=== PATIENT | male | born 1970 | race African-American/Black ===

== ENCOUNTER 2020-05-28 09:54 | Inpatient (IN) | payer MEDICAID, MEDICARE ==
[~2020-05-28] VITALS: Ht 175.3 cm; Wt 139.7 kg
[2020-05-28 11:15] LABS: BASOPHILS % 0.9 % (0.0-2.0); EOSINOPHILS % 1.4 % (0.0-5.0); HEMATOCRIT. 44.7 % (42.0-52.0); HEMOGLOBIN. 14.6 g/dL (14.0-18.0); LYMPHOCYTES % 29.5 % (20.0-50.0); MEAN CORPUSCULAR HEMOGLOBIN 30.7 pg (28.0-32.0); MEAN CORPUSCULAR VOLUME 93.9 fL (80.0-94.0); MONOCYTES % 8.1 % (2.0-8.0); NEUTROPHILS % 60.1 % (40.0-76.0); PLATELET 221 x1000/uL (130-400); RED BLOOD CELL COUNT 4.76 mill/uL (4.7-6.1); RED CELL DISTRIBUTION WIDTH 14.7 % (11.6-14.6)
[2020-05-28 11:25] LABS: INR 1.1; PROTHROMBIN TIME 11.4 sec (9.6-11.0)
[2020-05-28 12:08] LABS: CHLORIDE 106 mEq/L (98-107)
[2020-05-28] MEDS ORDERED: ALBUTEROL (0.083%) 2.5MG/3ML NEB HHN STA (12:16)
[2020-05-28] MEDS ORDERED: METHYLPREDNISOLONE SOD SUCC 125 MG/2 ML VIAL IV STA (12:16)
[2020-05-28] MEDS ORDERED: IPRATROPIUM BROMIDE (0.02%) 0.5MG/2.5ML NEB HHN STA (12:16)
[2020-05-28] MEDS ORDERED: GUAIFENESIN 200MG/10ML SUGAR FREE UDC PO PRN (15:15)
[2020-05-28] MEDS ORDERED: HYDROCODONE/ACETAMINOPHEN 5/325MG TABLET PO PRN (15:15)
[2020-05-28] MEDS ORDERED: ONDANSETRON HCL 4MG/2ML INJ IV PRN (15:15)
[2020-05-28] MEDS ORDERED: MAGNESIUM/ALUMINUM HYDROXIDE/SIMETHICONE 30ML UDC PO PRN (15:15)
[2020-05-28] MEDS ORDERED: ACETAMINOPHEN 325MG TABLET PO PRN (15:15)
[2020-05-28] MEDS: IPRATROPIUM/ALBUTEROL 0.5-3(2.5)MG/3ML NEB HHN PRN ×2 (15:40→22:30)
[2020-05-28 16:28] LABS: BG BASE EXCESS 4.7 mmol/L (-2.0-2.0); BG DEOXYHEMOGLOBIN 3.9 % (0.0-5.0); BG HCO3 ACT 35.3 mmol/L (22.0-26.0); BG METHEMOGLOBIN 0.5 % (0.0-1.5); BG OXYHEMOGLOBIN 94.6 % (94.0-97.0); BG PCO2 82.6 mmHg (35.0-45.0); BG PH 7.249 (7.350-7.450); BG PO2 89.2 mmHg (75.0-100.0); BG SAMPLE SITE RIGHT RADIAL; BG TOTAL HEMOGLOBIN 15.4 g/dL (12.0-18.0); BG VENT MODE MASK - VENTI
[2020-05-28 18:08] LABS: BG BASE EXCESS -0.8 mmol/L (-2.0-2.0); BG BILEVEL POS AIRWAY PRESSURE 15/5; BG CARBOXYHEMOGLOBIN 0.6 % (0.5-1.5); BG HCO3 ACT 29.6 mmol/L (22.0-26.0); BG METHEMOGLOBIN 0.4 % (0.0-1.5); BG PCO2 76.7 mmHg (35.0-45.0); BG PH 7.205 (7.350-7.450); BG PO2 197.2 mmHg (75.0-100.0); BG SAMPLE SITE RIGHT RADIAL; BG TOTAL HEMOGLOBIN 15.5 g/dL (12.0-18.0); BG VENT MODE MASK - BIPAP; BG VENT RATE 20 set
[2020-05-29 00:28] LABS: CREATINE KINASE 124 IU/L (39-308)
[2020-05-29] MEDS: CLONIDINE 0.1MG TABLET PO PRN (05:22)
[2020-05-29 07:58] LABS: BASOPHILS % 0.4 % (0.0-2.0); HEMATOCRIT. 43.9 % (42.0-52.0); HEMOGLOBIN. 14.4 g/dL (14.0-18.0); LYMPHOCYTES % 16.2 % (20.0-50.0); MEAN CORPUSCULAR HEMOGLOBIN 30.9 pg (28.0-32.0); MEAN CORPUSCULAR VOLUME 94.4 fL (80.0-94.0); MEAN PLATELET VOLUME 9.3 fl (7.4-10.4); MONOCYTES % 8.1 % (2.0-8.0); NEUTROPHILS % 75.3 % (40.0-76.0); PLATELET 224 x1000/uL (130-400); RED BLOOD CELL COUNT 4.65 mill/uL (4.7-6.1); RED CELL DISTRIBUTION WIDTH 14.5 % (11.6-14.6)
[2020-05-29 08:00] LABS: CHLORIDE 103 mEq/L (98-107)
[2020-05-29 08:08] LABS: HDL CHOLESTEROL 34 mg/dL (40-59)
[2020-05-29 08:08] LABS: BG BASE EXCESS 3.3 mmol/L (-2.0-2.0); BG BILEVEL POS AIRWAY PRESSURE ST=15/5; BG CARBOXYHEMOGLOBIN 0.9 % (0.5-1.5); BG DEOXYHEMOGLOBIN 2.1 % (0.0-5.0); BG FRACTION INSPIRED OXYGEN 50; BG HCO3 ACT 34.6 mmol/L (22.0-26.0); BG METHEMOGLOBIN 0.4 % (0.0-1.5); BG OXYGEN SATURATION 97.9 % (92.0-98.5); BG OXYHEMOGLOBIN 96.6 % (94.0-97.0); BG PCO2 89.8 mmHg (35.0-45.0); BG PH 7.204 (7.350-7.450); BG PO2 116.7 mmHg (75.0-100.0); BG SAMPLE SITE RIGHT RADIAL; BG TOTAL HEMOGLOBIN 14.8 g/dL (12.0-18.0); BG VENT MODE MASK - BIPAP
[2020-05-29 08:10] LABS: T4 FREE 0.85 ng/dL (0.76-1.46)
[2020-05-29 08:12] LABS: CREATINE KINASE 104 IU/L (39-308)
[2020-05-29 08:17] LABS: LDL CHOLESTEROL 86 mg/dL (5-100)
[2020-05-29] MEDS: AMLODIPINE 10MG TABLET PO SCH (09:06)
[2020-05-29] MEDS: IPRATROPIUM/ALBUTEROL 0.5-3(2.5)MG/3ML NEB HHN SCH ×3 (10:59→20:33)
[2020-05-29] MEDS: BUDESONIDE 0.5MG/2ML NEB HHN SCH (10:59)
[2020-05-29] MEDS ORDERED: FUROSEMIDE 40MG/4ML VIAL IVP NR (12:15)
[2020-05-29] MEDS: ENOXAPARIN 30MG/0.3ML SYR SUBCUT SCH ×2 (12:30→22:24)
[2020-05-29 16:00] VITALS: BP 137/108
[2020-05-29] MEDS: MONTELUKAST SODIUM 10MG TABLET PO SCH (17:00)
[2020-05-29 18:00] VITALS: BP 137/105
[2020-05-29 20:00] VITALS: BP 137/104
[2020-05-29 21:04] VITALS: BP 190/121
[2020-05-29 22:29] VITALS: BP 144/98
[2020-05-29 23:00] VITALS: BP 146/101
[2020-05-30] VITALS (11 sets, daily range): BP systolic 104–182; BP diastolic 44–103
[2020-05-30] MEDS: IPRATROPIUM/ALBUTEROL 0.5-3(2.5)MG/3ML NEB HHN SCH ×4 (01:50→20:18)
[2020-05-30] MEDS: BUDESONIDE 0.5MG/2ML NEB HHN SCH ×3 (01:50→20:18)
[2020-05-30] MEDS: CLONIDINE 0.1MG TABLET PO PRN (02:33)
[2020-05-30 04:54] LABS: CLARITY URINE CLEAR (CLEAR); COLOR URINE YELLOW (YELLOW); KETONES URINE NEGATIVE (NEGATIVE); LEUKOCYTE ESTERASE URINE NEGATIVE (NEGATIVE); NITRITE URINE NEGATIVE (NEGATIVE); OCCULT BLOOD URINE TRACE (NEGATIVE); PH URINE 5.5 (4.5-8.0); PROTEIN URINE TRACE (NEGATIVE)
[2020-05-30 05:10] LABS: *AMPHETAMINES SCREEN URINE NEGATIVE (NEGATIVE); *BARBITURATES SCREEN URINE NEGATIVE (NEGATIVE)
[2020-05-30 05:11] LABS: *BENZODIAZEPINES SCREEN URINE NEGATIVE (NEGATIVE); *COCAINE SCREEN URINE NEGATIVE (NEGATIVE); CANNABINOID URINE SCREEN NEGATIVE (NEGATIVE); METHADONE URINE SCREEN NEGATIVE (NEGATIVE); OPIATES URINE SCREEN NEGATIVE (NEGATIVE); PHENCYCLIDINE URINE SCREEN NEGATIVE (NEGATIVE)
[2020-05-30 06:55] LABS: BASOPHILS % 0.2 % (0.0-2.0); EOSINOPHILS % 0.5 % (0.0-5.0); HEMATOCRIT. 43.4 % (42.0-52.0); HEMOGLOBIN. 14.1 g/dL (14.0-18.0); LYMPHOCYTES % 15.7 % (20.0-50.0); MEAN CORPUSCULAR HEMOGLOBIN 30.3 pg (28.0-32.0); MEAN CORPUSCULAR VOLUME 93.1 fL (80.0-94.0); MEAN PLATELET VOLUME 9.5 fl (7.4-10.4); MONOCYTES % 6.6 % (2.0-8.0); PLATELET 227 x1000/uL (130-400); RED BLOOD CELL COUNT 4.66 mill/uL (4.7-6.1); RED CELL DISTRIBUTION WIDTH 14.2 % (11.6-14.6)
[2020-05-30 07:12] LABS: CHLORIDE 101 mEq/L (98-107)
[2020-05-30] MEDS: AMLODIPINE 10MG TABLET PO SCH (09:32)
[2020-05-30] MEDS: ENOXAPARIN 30MG/0.3ML SYR SUBCUT SCH ×2 (09:33→21:42)
[2020-05-30] MEDS: METHYLPREDNISOLONE SOD SUCC 40 MG/ML VIAL IV SCH ×2 (09:43→17:15)
[2020-05-30 11:54] LABS: BG CARBOXYHEMOGLOBIN 0.5 % (0.5-1.5); BG FRACTION INSPIRED OXYGEN 28; BG HCO3 ACT 32.9 mmol/L (22.0-26.0); BG METHEMOGLOBIN 0.1 % (0.0-1.5); BG OXYHEMOGLOBIN 93.4 % (94.0-97.0); BG PCO2 62.2 mmHg (35.0-45.0); BG PH 7.341 (7.350-7.450); BG PO2 68.8 mmHg (75.0-100.0); BG SAMPLE SITE RIGHT RADIAL; BG TOTAL HEMOGLOBIN 15.3 g/dL (12.0-18.0); BG VENT MODE NASAL CANNULA
[2020-05-30] MEDS: MONTELUKAST SODIUM 10MG TABLET PO SCH (17:15)
[2020-05-30 20:52] LABS: VITAMIN B12 SERUM 375 pg/mL (211-911)
[2020-05-31] VITALS (9 sets, daily range): BP systolic 109–171; BP diastolic 37–102
[2020-05-31] MEDS: METHYLPREDNISOLONE SOD SUCC 40 MG/ML VIAL IV SCH ×2 (01:03→08:31)
[2020-05-31] MEDS: IPRATROPIUM/ALBUTEROL 0.5-3(2.5)MG/3ML NEB HHN SCH ×4 (02:23→20:59)
[2020-05-31] MEDS: BUDESONIDE 0.5MG/2ML NEB HHN SCH ×2 (08:25→21:09)
[2020-05-31] MEDS: ENOXAPARIN 30MG/0.3ML SYR SUBCUT SCH ×2 (08:31→20:29)
[2020-05-31] MEDS: AMLODIPINE 10MG TABLET PO SCH (08:31)
[2020-05-31] MEDS ORDERED: IPRA3AMP9 HHN (10:14)
[2020-05-31] MEDS: MONTELUKAST SODIUM 10MG TABLET PO SCH (17:10)
[2020-05-31] MEDS: DOCUSATE SODIUM 100MG CAPSULE PO PRN (20:28)
[2020-06-01] VITALS: BP 117/47
[2020-06-01] MEDS: IPRATROPIUM/ALBUTEROL 0.5-3(2.5)MG/3ML NEB HHN SCH ×3 (01:59→15:01)
[2020-06-01 04:00] VITALS: BP 125/82
[2020-06-01 08:00] VITALS: BP 129/79
[2020-06-01] MEDS ORDERED: PREDNISONE 20MG TABLET PO SCH (09:00)
[2020-06-01] MEDS: AMLODIPINE 10MG TABLET PO SCH (09:17)
[2020-06-01] MEDS: ENOXAPARIN 30MG/0.3ML SYR SUBCUT SCH (09:17)
[2020-06-01] MEDS: DOCUSATE SODIUM 100MG CAPSULE PO PRN (09:24)
[2020-06-01 12:00] VITALS: BP 149/86
[2020-06-01] MEDS: BUDESONIDE 0.5MG/2ML NEB HHN SCH (15:00)
[2020-06-01 16:00] VITALS: BP 126/68
[2020-06-01] MEDS ORDERED: ENOXAPARIN 40MG/0.4ML SYR SUBCUT SCH (21:00)
== END 2020-06-01 16:28 | DRG 73 ==
LOC: ER 09:54 → EDBEDREQ 12:26 → EDBEDREQTM 12:26 → MICUSO 13:33 → EDBEDREQTM 13:38 → EDBEDREQ 13:38 → 5EST 05-29 14:30
PROVIDERS: ADMIT Hospitalist; ATTEND Hospitalist
PROC: 5A09457 Assistance with Respiratory Ventilation, 24-96 Consecutive Hours, Continuous Positive Airway Pressure (ICD-10-PCS; principal; 2020-05-28)
DX: G90.8 Other disorders of autonomic nervous system (principal); J96.02 Acute respiratory failure with hypercapnia; J96.01 Acute respiratory failure with hypoxia; E66.2 Morbid (severe) obesity with alveolar hypoventilation; I50.40 Unspecified combined systolic (congestive) and diastolic (congestive) heart failure; J44.1 Chronic obstructive pulmonary disease with (acute) exacerbation; Z68.45 Body mass index [BMI] 70 or greater, adult; I16.0 Hypertensive urgency; I11.0 Hypertensive heart disease with heart failure; Z91.19 Patient's noncompliance with other medical treatment and regimen; Z79.899 Other long term (current) drug therapy; H91.90 Unspecified hearing loss, unspecified ear
CPT/HCPCS: 36415; 36600; 70551; 71045; 78580; 80048; 80053; 80061; 80305; 81003; 82375; 82550; 82607; 82805; 83880; 84439; 84443; 84484; 85025; 92610; 93005; 93306; 93970; 94640; 94660; 95816; 97162; 99291; J1650; J2920; J2930; J7512; J7626

== ENCOUNTER 2020-06-01 16:16 | Inpatient (IN) | payer MEDICARE ==
[~2020-06-01] VITALS: Ht 175.3 cm; Wt 139.7 kg
[~2020-06-01 16:16] MED LIST: IPRA3AMP9 HHN
[2020-06-01] MEDS ORDERED: CLONIDINE 0.1MG TABLET PO PRN (17:30)
[2020-06-01] MEDS ORDERED: ONDANSETRON HCL 4MG TABLET PO PRN (17:30)
[2020-06-01] MEDS ORDERED: IPRATROPIUM/ALBUTEROL 0.5-3(2.5)MG/3ML NEB HHN PRN (17:30)
[2020-06-01] MEDS ORDERED: DOCUSATE SODIUM 100MG CAPSULE PO PRN (17:30)
[2020-06-01] MEDS ORDERED: ACETAMINOPHEN 650MG/20.3ML UDC PO PRN (17:30)
[2020-06-01] MEDS ORDERED: GUAIFENESIN 200MG/10ML SUGAR FREE UDC PO PRN (17:30)
[2020-06-01] MEDS ORDERED: MAGNESIUM/ALUMINUM HYDROXIDE/SIMETHICONE 30ML UDC PO PRN (17:30)
[2020-06-01] MEDS ORDERED: HYDROCODONE/ACETAMINOPHEN 5/325MG TABLET PO PRN (17:30)
[2020-06-01 17:39] VITALS: BP 141/79
[2020-06-01 20:00] VITALS: BP 156/87
[2020-06-01] MEDS: IPRATROPIUM/ALBUTEROL 0.5-3(2.5)MG/3ML NEB HHN SCH (20:36)
[2020-06-01] MEDS: ENOXAPARIN 40MG/0.4ML SYR SUBCUT SCH (21:08)
[2020-06-01] MEDS ORDERED: NA PHOS,M-B/NA PHOS,DI-BA ENEMA 118ML PR PRN (23:00)
[2020-06-02] MEDS: IPRATROPIUM/ALBUTEROL 0.5-3(2.5)MG/3ML NEB HHN SCH ×4 (01:42→21:20)
[2020-06-02] MEDS: PREDNISONE 20MG TABLET PO SCH (08:32)
[2020-06-02] MEDS: AMLODIPINE 10MG TABLET PO SCH (08:33)
[2020-06-02] MEDS: ENOXAPARIN 40MG/0.4ML SYR SUBCUT SCH ×2 (08:34→21:45)
[2020-06-02] MEDS ORDERED: ENOXAPARIN 40MG/0.4ML SYR SUBCUT SCH (15:30)
[2020-06-02] MEDS ORDERED: BISACODYL 5MG TABLET PO PRN (15:30)
[2020-06-02] MEDS ORDERED: LACTULOSE 20G/30ML UDC PO SCH (16:00)
[2020-06-02] MEDS ORDERED: LACTULOSE 20G/30ML UDC PO PRN (16:00)
[2020-06-02] MEDS ORDERED: MONTELUKAST SODIUM 10MG TABLET PO SCH (17:00)
[2020-06-02 20:00] VITALS: BP 122/72
[2020-06-03] MEDS: IPRATROPIUM/ALBUTEROL 0.5-3(2.5)MG/3ML NEB HHN SCH ×4 (01:10→21:20)
[2020-06-03 08:00] VITALS: BP 114/66
[2020-06-03] MEDS: PREDNISONE 20MG TABLET PO SCH (09:26)
[2020-06-03] MEDS: AMLODIPINE 10MG TABLET PO SCH (09:27)
[2020-06-03] MEDS: DOCUSATE SODIUM 100MG CAPSULE PO SCH ×2 (09:27→16:55)
[2020-06-03] MEDS: ENOXAPARIN 40MG/0.4ML SYR SUBCUT SCH ×2 (09:28→20:48)
[2020-06-03] MEDS: FLUTICASONE/VILANTEROL 200-25 BLST.W.DEV ORI SCH (16:54)
[2020-06-03 20:00] VITALS: BP 130/77
[2020-06-04] MEDS: IPRATROPIUM/ALBUTEROL 0.5-3(2.5)MG/3ML NEB HHN SCH ×5 (03:15→23:20)
[2020-06-04 08:00] VITALS: BP 105/58
[2020-06-04] MEDS: AMLODIPINE 10MG TABLET PO SCH (09:00)
[2020-06-04] MEDS: DOCUSATE SODIUM 100MG CAPSULE PO SCH ×2 (09:08→16:11)
[2020-06-04] MEDS: PREDNISONE 20MG TABLET PO SCH (09:08)
[2020-06-04] MEDS: ENOXAPARIN 40MG/0.4ML SYR SUBCUT SCH ×2 (09:09→21:10)
[2020-06-04] MEDS: NA PHOS,M-B/NA PHOS,DI-BA ENEMA 118ML PR PRN (09:13)
[2020-06-04] MEDS: FLUTICASONE/VILANTEROL 200-25 BLST.W.DEV ORI SCH (09:29)
[2020-06-04 21:00] VITALS: BP 120/82
[2020-06-05 08:03] VITALS: BP 106/62
[2020-06-05] MEDS: DOCUSATE SODIUM 100MG CAPSULE PO SCH ×2 (09:00→17:54)
[2020-06-05] MEDS: AMLODIPINE 10MG TABLET PO SCH (09:00)
[2020-06-05] MEDS: PREDNISONE 20MG TABLET PO SCH (09:28)
[2020-06-05] MEDS: ENOXAPARIN 40MG/0.4ML SYR SUBCUT SCH ×2 (09:29→21:35)
[2020-06-05] MEDS: FLUTICASONE/VILANTEROL 200-25 BLST.W.DEV ORI SCH (09:29)
[2020-06-05] MEDS: IPRATROPIUM/ALBUTEROL 0.5-3(2.5)MG/3ML NEB HHN SCH ×2 (15:45→20:40)
[2020-06-05 20:00] VITALS: BP 130/76
[2020-06-06] MEDS: IPRATROPIUM/ALBUTEROL 0.5-3(2.5)MG/3ML NEB HHN SCH ×5 (02:14→21:11)
[2020-06-06 08:00] VITALS: BP 122/72
[2020-06-06] MEDS: FLUTICASONE/VILANTEROL 200-25 BLST.W.DEV ORI SCH ×2 (10:25→10:29)
[2020-06-06] MEDS: DOCUSATE SODIUM 100MG CAPSULE PO SCH ×2 (10:27→17:48)
[2020-06-06] MEDS: AMLODIPINE 10MG TABLET PO SCH (10:28)
[2020-06-06] MEDS: PREDNISONE 20MG TABLET PO SCH (10:28)
[2020-06-06] MEDS: ENOXAPARIN 40MG/0.4ML SYR SUBCUT SCH ×2 (10:28→21:50)
[2020-06-06] MEDS: NA PHOS,M-B/NA PHOS,DI-BA ENEMA 118ML PR PRN (14:34)
[2020-06-06] MEDS ORDERED: NA PHOS,M-B/NA PHOS,DI-BA ENEMA 118ML PR NR (14:45)
[2020-06-06 20:00] VITALS: BP 128/78
[2020-06-07] MEDS: IPRATROPIUM/ALBUTEROL 0.5-3(2.5)MG/3ML NEB HHN SCH ×4 (02:15→15:24)
[2020-06-07 06:30] LABS: CHLORIDE 102 mEq/L (98-107)
[2020-06-07 06:49] LABS: HEMATOCRIT 47.4 % (42.0-52.0); HEMOGLOBIN 15.2 g/dL (14.0-18.0); MEAN CORPUSCULAR HEMOGLOBIN 29.6 pg (28.0-32.0); MEAN CORPUSCULAR VOLUME 92.4 fL (80.0-94.0); PLATELET 239 x1000/uL (130-400); RED BLOOD CELL COUNT 5.13 mill/uL (4.7-6.1); RED CELL DISTRIBUTION WIDTH 13.9 % (11.6-14.6)
[2020-06-07 07:59] VITALS: BP 107/77
[2020-06-07] MEDS: AMLODIPINE 10MG TABLET PO SCH (09:00)
[2020-06-07] MEDS: FLUTICASONE/VILANTEROL 200-25 BLST.W.DEV ORI SCH (10:03)
[2020-06-07] MEDS: DOCUSATE SODIUM 100MG CAPSULE PO SCH ×2 (10:04→18:09)
[2020-06-07] MEDS: PREDNISONE 20MG TABLET PO SCH (10:07)
[2020-06-07] MEDS: ENOXAPARIN 40MG/0.4ML SYR SUBCUT SCH ×2 (10:08→21:37)
[2020-06-07 20:00] VITALS: BP 133/78
[2020-06-08] MEDS: IPRATROPIUM/ALBUTEROL 0.5-3(2.5)MG/3ML NEB HHN SCH ×3 (02:17→14:25)
[2020-06-08 08:00] VITALS: BP 91/47
[2020-06-08] MEDS: PREDNISONE 20MG TABLET PO SCH (08:40)
[2020-06-08] MEDS: DOCUSATE SODIUM 100MG CAPSULE PO SCH (08:40)
[2020-06-08] MEDS: AMLODIPINE 10MG TABLET PO SCH (08:41)
[2020-06-08] MEDS: FLUTICASONE/VILANTEROL 200-25 BLST.W.DEV ORI SCH (08:42)
[2020-06-08] MEDS: ENOXAPARIN 40MG/0.4ML SYR SUBCUT SCH (08:44)
[2020-06-08 14:20] VITALS: BP 108/61
== END 2020-06-08 15:05 | disposition home health service (06) | DRG 85 ==
PROVIDERS: ADMIT Psychiatry & Neurology Neurology; ATTEND Hospitalist
PROC: 5A09357 Assistance with Respiratory Ventilation, Less than 24 Consecutive Hours, Continuous Positive Airway Pressure (ICD-10-PCS; 2020-06-01)
PROC: 4A10X4Z Monitoring of Central Nervous Electrical Activity, External Approach (ICD-10-PCS; principal; 2020-06-03)
PROC: 5A09357 Assistance with Respiratory Ventilation, Less than 24 Consecutive Hours, Continuous Positive Airway Pressure (ICD-10-PCS; 2020-06-03)
PROC: 5A09357 Assistance with Respiratory Ventilation, Less than 24 Consecutive Hours, Continuous Positive Airway Pressure (ICD-10-PCS; 2020-06-04)
PROC: 5A09357 Assistance with Respiratory Ventilation, Less than 24 Consecutive Hours, Continuous Positive Airway Pressure (ICD-10-PCS; 2020-06-05)
PROC: 5A09357 Assistance with Respiratory Ventilation, Less than 24 Consecutive Hours, Continuous Positive Airway Pressure (ICD-10-PCS; 2020-06-06)
PROC: 5A09357 Assistance with Respiratory Ventilation, Less than 24 Consecutive Hours, Continuous Positive Airway Pressure (ICD-10-PCS; 2020-06-07)
DX: S06.890A Other specified intracranial injury without loss of consciousness, initial encounter (principal); J96.02 Acute respiratory failure with hypercapnia; E66.2 Morbid (severe) obesity with alveolar hypoventilation; Z68.42 Body mass index [BMI] 45.0-49.9, adult; I10 Essential (primary) hypertension; J44.9 Chronic obstructive pulmonary disease, unspecified; K59.00 Constipation, unspecified; R29.6 Repeated falls; G90.8 Other disorders of autonomic nervous system; J45.909 Unspecified asthma, uncomplicated; Z71.3 Dietary counseling and surveillance
CPT/HCPCS: 36415; 80048; 85027; 92523; 94618; 94640; 94660; 97110; 97112; 97116; 97162; 97166; 97530; 97535; J1650; J7512

== ENCOUNTER 2022-05-16 05:33 | Inpatient (IN) | payer MEDICAID, MEDICARE, OTHER ==
[~2022-05-16] VITALS: Ht 185.4 cm; Wt 132.0 kg
[2022-05-16] VITALS (7 sets, daily range): BP systolic 114–143; BP diastolic 52–71
[2022-05-16] MEDS ORDERED: METHYLPREDNISOLONE SOD SUCC 125 MG/2 ML VIAL IV STA (06:16)
[2022-05-16] MEDS ORDERED: IPRATROPIUM BROMIDE (0.02%) 0.5MG/2.5ML NEB HHN STA (06:16)
[2022-05-16] MEDS ORDERED: ALBUTEROL (0.083%) 2.5MG/3ML NEB HHN STA (06:16)
[2022-05-16 06:44] LABS: BASOPHILS % 0.6 % (0.0-2.0); EOSINOPHILS % 1.2 % (0.0-5.0); HEMATOCRIT. 47.7 % (42.0-52.0); HEMOGLOBIN. 15.8 g/dL (14.0-18.0); LYMPHOCYTES % 42.4 % (20.0-50.0); MEAN CORPUSCULAR HEMOGLOBIN 30.3 pg (28.0-32.0); MEAN CORPUSCULAR VOLUME 91.6 fL (80.0-94.0); MEAN PLATELET VOLUME 9.6 fl (7.4-10.4); MONOCYTES % 5.2 % (2.0-8.0); NEUTROPHILS % 50.6 % (40.0-76.0); PLATELET 212 x1000/uL (130-400); RED BLOOD CELL COUNT 5.21 mill/uL (4.7-6.1); RED CELL DISTRIBUTION WIDTH 14.2 % (11.6-14.6)
[2022-05-16 06:46] LABS: CHLORIDE 102 mEq/L (98-107)
[2022-05-16 07:41] LABS: CLARITY URINE CLEAR (CLEAR); COLOR URINE YELLOW (YELLOW); KETONES URINE NEGATIVE (NEGATIVE); LEUKOCYTE ESTERASE URINE NEGATIVE (NEGATIVE); NITRITE URINE NEGATIVE (NEGATIVE); OCCULT BLOOD URINE 1+ (NEGATIVE); PROTEIN URINE TRACE (NEGATIVE); SPECIFIC GRAVITY URINE 1.014 (1.005-1.030)
[2022-05-16 09:07] LABS: BG BASE EXCESS 4.7 mmol/L (-2.0-2.0); BG CARBOXYHEMOGLOBIN 0.5 % (0.5-1.5); BG DEOXYHEMOGLOBIN 8.2 % (0.0-5.0); BG FRACTION INSPIRED OXYGEN 28; BG HCO3 ACT 35.6 mmol/L (22.0-26.0); BG METHEMOGLOBIN 0.6 % (0.0-1.5); BG OXYGEN SATURATION 91.7 % (92.0-98.5); BG OXYHEMOGLOBIN 90.7 % (94.0-97.0); BG PCO2 85.1 mmHg (35.0-45.0); BG PH 7.239 (7.350-7.450); BG PO2 70.6 mmHg (75.0-100.0); BG SAMPLE SITE RIGHT RADIAL; BG TOTAL HEMOGLOBIN 15.4 g/dL (12.0-18.0); BG VENT MODE NASAL CANNULA
[2022-05-16] MEDS: ALBUTEROL (0.083%) 2.5MG/3ML NEB HHN NR ×2 (10:40→11:15)
[2022-05-16] MEDS: IPRATROPIUM BROMIDE (0.02%) 0.5MG/2.5ML NEB HHN NR ×2 (10:40→11:16)
[2022-05-16 11:26] LABS: BG BASE EXCESS 5.1 mmol/L (-2.0-2.0); BG DEOXYHEMOGLOBIN 14.9 % (0.0-5.0); BG FRACTION INSPIRED OXYGEN 98; BG METHEMOGLOBIN 0.3 % (0.0-1.5); BG OXYGEN SATURATION 84.9 % (92.0-98.5); BG OXYHEMOGLOBIN 83.8 % (94.0-97.0); BG PCO2 62.1 mmHg (35.0-45.0); BG PH 7.343 (7.350-7.450); BG PO2 48.1 mmHg (75.0-100.0); BG SAMPLE SITE RIGHT RADIAL; BG TOTAL HEMOGLOBIN 15.1 g/dL (12.0-18.0); BG VENT MODE COOL AEROSOL
[2022-05-16] MEDS ORDERED: CEFTRIAXONE 1 G PREMIX 50 ML IV SCH (13:30)
[2022-05-16] MEDS ORDERED: AZITHROMYCIN 500MG/250ML 250 ML IV ONE (13:30)
[2022-05-16 14:05] LABS: BG BASE EXCESS 2.2 mmol/L (-2.0-2.0); BG CARBOXYHEMOGLOBIN 0.7 % (0.5-1.5); BG DEOXYHEMOGLOBIN 7.1 % (0.0-5.0); BG FRACTION INSPIRED OXYGEN 60; BG HCO3 ACT 30.5 mmol/L (22.0-26.0); BG METHEMOGLOBIN 0.5 % (0.0-1.5); BG OXYGEN SATURATION 92.8 % (92.0-98.5); BG OXYHEMOGLOBIN 91.7 % (94.0-97.0); BG PCO2 64.1 mmHg (35.0-45.0); BG PH 7.295 (7.350-7.450); BG PO2 67.7 mmHg (75.0-100.0); BG SAMPLE SITE LEFT RADIAL; BG TOTAL HEMOGLOBIN 14.4 g/dL (12.0-18.0); BG VENT MODE COOL AEROSOL
[2022-05-16] MEDS: CEFTRIAXONE 1,000 MG in DEXTROSE 5% WATER 50 ML IV SCH (15:56)
[2022-05-16] MEDS: IPRATROPIUM BROMIDE (0.02%) 0.5MG/2.5ML NEB HHN SCH ×2 (16:51→20:31)
[2022-05-16] MEDS: ACETYLCYSTEINE 100MG/ML 10% VIAL 4ML INH SCH (16:51)
[2022-05-16] MEDS: AZITHROMYCIN 500MG in DEXTROSE 5% WATER 250ML IV SCH (16:55)
[2022-05-16] MEDS ORDERED: MAGNESIUM/ALUMINUM HYDROXIDE/SIMETHICONE 30ML UDC PO PRN (20:30)
[2022-05-16] MEDS ORDERED: ZOLPIDEM TARTRATE 5MG TABLET PO PRN (20:30)
[2022-05-16] MEDS ORDERED: ACETAMINOPHEN 325MG TABLET PO PRN (20:30)
[2022-05-16] MEDS: SODIUM CHLORIDE 0.9% INJ 3ML FLUSH IVF SCH (22:00)
[2022-05-17] VITALS (10 sets, daily range): BP systolic 112–171; BP diastolic 60–109
[2022-05-17] MEDS: ACETYLCYSTEINE 100MG/ML 10% VIAL 4ML INH SCH ×3 (00:34→16:00)
[2022-05-17] MEDS: IPRATROPIUM BROMIDE (0.02%) 0.5MG/2.5ML NEB HHN SCH ×6 (00:34→20:28)
[2022-05-17] MEDS: SODIUM CHLORIDE 0.9% INJ 3ML FLUSH IVF SCH ×3 (05:58→22:19)
[2022-05-17] MEDS: CEFTRIAXONE 1,000 MG in DEXTROSE 5% WATER 50 ML IV SCH (13:11)
[2022-05-17] MEDS: AZITHROMYCIN 500MG in DEXTROSE 5% WATER 250ML IV SCH (14:00)
[2022-05-17 15:59] LABS: BG BASE EXCESS 7.6 mmol/L (-2.0-2.0); BG CARBOXYHEMOGLOBIN 0.9 % (0.5-1.5); BG DEOXYHEMOGLOBIN 7.1 % (0.0-5.0); BG FRACTION INSPIRED OXYGEN 60; BG HCO3 ACT 36.3 mmol/L (22.0-26.0); BG METHEMOGLOBIN 0.4 % (0.0-1.5); BG OXYGEN SATURATION 92.8 % (92.0-98.5); BG OXYHEMOGLOBIN 91.6 % (94.0-97.0); BG PCO2 69.7 mmHg (35.0-45.0); BG PH 7.334 (7.350-7.450); BG PO2 66.7 mmHg (75.0-100.0); BG SAMPLE SITE LEFT RADIAL; BG TOTAL HEMOGLOBIN 14.8 g/dL (12.0-18.0); BG VENT MODE T PIECE
[2022-05-17] MEDS: METHYLPREDNISOLONE SOD SUCC 40 MG/ML VIAL IV SCH ×2 (17:32→22:18)
[2022-05-17] MEDS: DEXT 5%/0.45% NACL 1000ML 1,000 ML IV SCH (17:33)
[2022-05-17] MEDS ORDERED: LORAZEPAM 2MG/ML CPJ IV PRN (19:45)
[2022-05-17] MEDS: HYDRALAZINE 20MG/ML VIAL IV PRN (22:19)
[2022-05-18] VITALS (12 sets, daily range): BP systolic 110–187; BP diastolic 54–115
[2022-05-18] MEDS: DIAZEPAM 5 MG/ML 2ML CPJ IV PRN (00:08)
[2022-05-18] MEDS: ACETYLCYSTEINE 100MG/ML 10% VIAL 4ML INH SCH ×2 (00:55→08:27)
[2022-05-18] MEDS: IPRATROPIUM BROMIDE (0.02%) 0.5MG/2.5ML NEB HHN SCH ×6 (00:55→20:24)
[2022-05-18] MEDS: DEXT 5%/0.45% NACL 1000ML 1,000 ML IV SCH ×2 (06:07→21:31)
[2022-05-18] MEDS: HYDRALAZINE 20MG/ML VIAL IV PRN ×2 (06:07→11:05)
[2022-05-18] MEDS: SODIUM CHLORIDE 0.9% INJ 3ML FLUSH IVF SCH ×3 (06:07→21:32)
[2022-05-18] MEDS: METHYLPREDNISOLONE SOD SUCC 40 MG/ML VIAL IV SCH ×3 (06:07→21:31)
[2022-05-18] MEDS: CEFTRIAXONE 1,000 MG in DEXTROSE 5% WATER 50 ML IV SCH (13:00)
[2022-05-18] MEDS: AZITHROMYCIN 500MG in DEXTROSE 5% WATER 250ML IV SCH (14:15)
[2022-05-19] VITALS (14 sets, daily range): BP systolic 109–171; BP diastolic 71–98
[2022-05-19] MEDS: IPRATROPIUM BROMIDE (0.02%) 0.5MG/2.5ML NEB HHN SCH ×6 (00:47→21:13)
[2022-05-19] MEDS: ACETYLCYSTEINE 100MG/ML 10% VIAL 4ML INH SCH ×3 (00:48→15:22)
[2022-05-19] MEDS: SODIUM CHLORIDE 0.9% INJ 3ML FLUSH IVF SCH ×3 (06:00→21:37)
[2022-05-19] MEDS: METHYLPREDNISOLONE SOD SUCC 40 MG/ML VIAL IV SCH ×3 (06:03→21:35)
[2022-05-19] MEDS: DEXT 5%/0.45% NACL 1000ML 1,000 ML IV SCH (10:05)
[2022-05-19] MEDS: DIAZEPAM 5 MG/ML 2ML CPJ IV PRN ×3 (10:10→21:36)
[2022-05-19 12:39] LABS: BG BASE EXCESS 4.6 mmol/L (-2.0-2.0); BG CARBOXYHEMOGLOBIN 0.5 % (0.5-1.5); BG DEOXYHEMOGLOBIN 6.7 % (0.0-5.0); BG FRACTION INSPIRED OXYGEN 50; BG HCO3 ACT 28.1 mmol/L (22.0-26.0); BG METHEMOGLOBIN 0.4 % (0.0-1.5); BG OXYGEN SATURATION 93.2 % (92.0-98.5); BG OXYHEMOGLOBIN 92.4 % (94.0-97.0); BG PCO2 38.4 mmHg (35.0-45.0); BG PH 7.483 (7.350-7.450); BG PO2 62.6 mmHg (75.0-100.0); BG SAMPLE SITE RIGHT RADIAL; BG TOTAL HEMOGLOBIN 16.6 g/dL (12.0-18.0); BG VENT MODE VENT - AC
[2022-05-19] MEDS: CEFTRIAXONE 1,000 MG in DEXTROSE 5% WATER 50 ML IV SCH (13:35)
[2022-05-19] MEDS: AZITHROMYCIN 500MG in DEXTROSE 5% WATER 250ML IV SCH (14:05)
[2022-05-19 16:26] LABS: BG BASE EXCESS 0.7 mmol/L (-2.0-2.0); BG CARBOXYHEMOGLOBIN 0.8 % (0.5-1.5); BG DEOXYHEMOGLOBIN 5.6 % (0.0-5.0); BG FRACTION INSPIRED OXYGEN 60; BG HCO3 ACT 26.8 mmol/L (22.0-26.0); BG METHEMOGLOBIN 0.4 % (0.0-1.5); BG OXYGEN SATURATION 94.3 % (92.0-98.5); BG OXYHEMOGLOBIN 93.2 % (94.0-97.0); BG PH 7.365 (7.350-7.450); BG PO2 73.5 mmHg (75.0-100.0); BG SAMPLE SITE RIGHT RADIAL; BG TOTAL HEMOGLOBIN 16.9 g/dL (12.0-18.0); BG VENT MODE COOL AEROSOL
[2022-05-20] VITALS (13 sets, daily range): BP systolic 99–147; BP diastolic 60–91
[2022-05-20] MEDS: IPRATROPIUM BROMIDE (0.02%) 0.5MG/2.5ML NEB HHN SCH ×6 (00:27→20:16)
[2022-05-20] MEDS: ACETYLCYSTEINE 100MG/ML 10% VIAL 4ML INH SCH ×3 (00:27→16:21)
[2022-05-20] MEDS: SODIUM CHLORIDE 0.9% INJ 3ML FLUSH IVF SCH ×3 (06:00→22:22)
[2022-05-20 06:43] LABS: BG BASE EXCESS -1.1 mmol/L (-2.0-2.0); BG CARBOXYHEMOGLOBIN 0.6 % (0.5-1.5); BG DEOXYHEMOGLOBIN 8.3 % (0.0-5.0); BG FRACTION INSPIRED OXYGEN 100; BG HCO3 ACT 33.2 mmol/L (22.0-26.0); BG METHEMOGLOBIN 0.5 % (0.0-1.5); BG OXYGEN SATURATION 91.6 % (92.0-98.5); BG OXYHEMOGLOBIN 90.6 % (94.0-97.0); BG PCO2 112.2 mmHg (35.0-45.0); BG PH 7.089 (7.350-7.450); BG PO2 80.7 mmHg (75.0-100.0); BG SAMPLE SITE RIGHT RADIAL; BG TOTAL HEMOGLOBIN 16.8 g/dL (12.0-18.0); BG VENT MODE VENT - AC
[2022-05-20] MEDS: METHYLPREDNISOLONE SOD SUCC 40 MG/ML VIAL IV SCH ×3 (06:43→22:19)
[2022-05-20] MEDS: DIAZEPAM 5 MG/ML 2ML CPJ IV PRN ×2 (08:52→15:29)
[2022-05-20 08:57] LABS: BG BASE EXCESS 1.5 mmol/L (-2.0-2.0); BG CARBOXYHEMOGLOBIN 0.8 % (0.5-1.5); BG DEOXYHEMOGLOBIN 2.7 % (0.0-5.0); BG FRACTION INSPIRED OXYGEN 100; BG HCO3 ACT 29.7 mmol/L (22.0-26.0); BG METHEMOGLOBIN 0.4 % (0.0-1.5); BG OXYGEN SATURATION 97.3 % (92.0-98.5); BG OXYHEMOGLOBIN 96.1 % (94.0-97.0); BG PCO2 61.3 mmHg (35.0-45.0); BG PH 7.303 (7.350-7.450); BG PO2 99.2 mmHg (75.0-100.0); BG SAMPLE SITE RIGHT RADIAL; BG TOTAL HEMOGLOBIN 15.8 g/dL (12.0-18.0); BG VENT MODE VENT - AC
[2022-05-20] MEDS: CEFTRIAXONE 1,000 MG in DEXTROSE 5% WATER 50 ML IV SCH (15:29)
[2022-05-20] MEDS: DEXT 5%/0.45% NACL 1000ML 1,000 ML IV SCH (15:30)
[2022-05-20] MEDS ORDERED: ENOXAPARIN 120MG/0.8ML SYR SUBCUT NR (17:43)
[2022-05-20] MEDS: ACETAMINOPHEN 325MG TABLET PO PRN (17:46)
[2022-05-20] MEDS: METOPROLOL TARTRATE 25MG TABLET NG SCH ×2 (17:46→21:00)
[2022-05-20] MEDS: AZITHROMYCIN 500MG in DEXTROSE 5% WATER 250ML IV SCH (18:45)
[2022-05-20] MEDS ORDERED: METOPROLOL TARTRATE 25MG TABLET NG SCH (21:00)
[2022-05-21] VITALS (12 sets, daily range): BP systolic 107–143; BP diastolic 53–96
[2022-05-21] MEDS: IPRATROPIUM BROMIDE (0.02%) 0.5MG/2.5ML NEB HHN SCH ×6 (00:22→20:14)
[2022-05-21] MEDS: ACETYLCYSTEINE 100MG/ML 10% VIAL 4ML INH SCH ×2 (00:23→07:54)
[2022-05-21] MEDS: DIAZEPAM 5 MG/ML 2ML CPJ IV PRN ×2 (01:06→11:36)
[2022-05-21] MEDS: DEXT 5%/0.45% NACL 1000ML 1,000 ML IV SCH ×2 (01:07→13:26)
[2022-05-21] MEDS: SODIUM CHLORIDE 0.9% INJ 3ML FLUSH IVF SCH ×3 (06:06→22:31)
[2022-05-21] MEDS: METHYLPREDNISOLONE SOD SUCC 40 MG/ML VIAL IV SCH ×2 (06:06→13:25)
[2022-05-21 06:15] LABS: INR 1.2; PROTHROMBIN TIME 12.5 sec (9.6-11.0)
[2022-05-21 06:19] LABS: HEMATOCRIT. 43.5 % (42.0-52.0); HEMOGLOBIN. 14.6 g/dL (14.0-18.0); MEAN CORPUSCULAR HEMOGLOBIN 30.3 pg (28.0-32.0); MEAN CORPUSCULAR VOLUME 90.5 fL (80.0-94.0); MEAN PLATELET VOLUME 10.1 fl (7.4-10.4); PLATELET 240 x1000/uL (130-400); RED BLOOD CELL COUNT 4.81 mill/uL (4.7-6.1); RED CELL DISTRIBUTION WIDTH 14.3 % (11.6-14.6)
[2022-05-21 06:48] LABS: PHOSPHORUS 5.7 mg/dL (2.5-4.9)
[2022-05-21] MEDS: METOPROLOL TARTRATE 25MG TABLET NG SCH ×2 (08:42→20:48)
[2022-05-21] MEDS: ENOXAPARIN 120MG/0.8ML SYR SUBCUT SCH ×2 (08:43→18:10)
[2022-05-21 09:19] LABS: BG BASE EXCESS -1.4 mmol/L (-2.0-2.0); BG DEOXYHEMOGLOBIN 5.5 % (0.0-5.0); BG FRACTION INSPIRED OXYGEN 85; BG HCO3 ACT 24.2 mmol/L (22.0-26.0); BG METHEMOGLOBIN 0.1 % (0.0-1.5); BG OXYGEN SATURATION 94.5 % (92.0-98.5); BG OXYHEMOGLOBIN 94.4 % (94.0-97.0); BG PCO2 44.2 mmHg (35.0-45.0); BG PH 7.357 (7.350-7.450); BG PO2 74.4 mmHg (75.0-100.0); BG SAMPLE SITE RIGHT RADIAL; BG TOTAL HEMOGLOBIN 15.7 g/dL (12.0-18.0); BG VENT MODE VENT - AC
[2022-05-21] MEDS ORDERED: POTASSIUM CHLORIDE 20MEQ/PACKET NG NR (10:15)
[2022-05-21] MEDS: CEFTRIAXONE 1,000 MG in DEXTROSE 5% WATER 50 ML IV SCH (18:09)
[2022-05-21] MEDS: METHYLPREDNISOLONE SOD SUCC 125 MG/2 ML VIAL IV SCH (22:31)
[2022-05-22] VITALS (13 sets, daily range): BP systolic 122–160; BP diastolic 51–109
[2022-05-22] MEDS: IPRATROPIUM BROMIDE (0.02%) 0.5MG/2.5ML NEB HHN SCH ×6 (00:29→20:11)
[2022-05-22 02:14] LABS: PLATELET ESTIMATE NORMAL
[2022-05-22] MEDS: DEXT 5%/0.45% NACL 1000ML 1,000 ML IV SCH ×2 (03:30→17:30)
[2022-05-22] MEDS: ENOXAPARIN 120MG/0.8ML SYR SUBCUT SCH ×2 (05:19→17:39)
[2022-05-22] MEDS: SODIUM CHLORIDE 0.9% INJ 3ML FLUSH IVF SCH ×3 (05:19→21:21)
[2022-05-22] MEDS: METHYLPREDNISOLONE SOD SUCC 125 MG/2 ML VIAL IV SCH ×3 (05:19→21:21)
[2022-05-22] MEDS: METOPROLOL TARTRATE 25MG TABLET NG SCH ×2 (09:39→21:00)
[2022-05-22 12:13] LABS: BG BASE EXCESS -1.6 mmol/L (-2.0-2.0); BG CARBOXYHEMOGLOBIN 0.2 % (0.5-1.5); BG DEOXYHEMOGLOBIN 4.1 % (0.0-5.0); BG FRACTION INSPIRED OXYGEN 85; BG HCO3 ACT 24.1 mmol/L (22.0-26.0); BG METHEMOGLOBIN 0.4 % (0.0-1.5); BG OXYGEN SATURATION 95.9 % (92.0-98.5); BG OXYHEMOGLOBIN 95.3 % (94.0-97.0); BG PCO2 44.2 mmHg (35.0-45.0); BG PH 7.355 (7.350-7.450); BG PO2 84.9 mmHg (75.0-100.0); BG SAMPLE SITE RIGHT RADIAL; BG TOTAL HEMOGLOBIN 15.9 g/dL (12.0-18.0); BG VENT MODE VENT - AC
[2022-05-22] MEDS ORDERED: POTASSIUM CHLORIDE 20MEQ TABLET SR PO NR (16:15)
[2022-05-22] MEDS: CEFTRIAXONE 1,000 MG in DEXTROSE 5% WATER 50 ML IV SCH (17:30)
[2022-05-22] MEDS: THEOPHYLLINE ANHYDROUS 80 MG/15 ML 120ML PO SCH (21:21)
[2022-05-23] VITALS (11 sets, daily range): BP systolic 134–182; BP diastolic 70–110
[2022-05-23] MEDS: IPRATROPIUM BROMIDE (0.02%) 0.5MG/2.5ML NEB HHN SCH ×6 (00:31→20:09)
[2022-05-23] MEDS: METHYLPREDNISOLONE SOD SUCC 125 MG/2 ML VIAL IV SCH ×3 (05:44→22:43)
[2022-05-23] MEDS: THEOPHYLLINE ANHYDROUS 80 MG/15 ML 120ML PO SCH ×3 (05:44→22:44)
[2022-05-23] MEDS: SODIUM CHLORIDE 0.9% INJ 3ML FLUSH IVF SCH ×3 (05:45→22:44)
[2022-05-23] MEDS: DEXT 5%/0.45% NACL 1000ML 1,000 ML IV SCH ×2 (05:45→20:16)
[2022-05-23] MEDS: ENOXAPARIN 120MG/0.8ML SYR SUBCUT SCH (05:45)
[2022-05-23] MEDS: METOPROLOL TARTRATE 25MG TABLET NG SCH ×2 (09:22→22:43)
[2022-05-23 11:57] LABS: BG BASE EXCESS -0.2 mmol/L (-2.0-2.0); BG CARBOXYHEMOGLOBIN 0.2 % (0.5-1.5); BG DEOXYHEMOGLOBIN 1.5 % (0.0-5.0); BG FRACTION INSPIRED OXYGEN 85; BG HCO3 ACT 23.4 mmol/L (22.0-26.0); BG METHEMOGLOBIN 0.2 % (0.0-1.5); BG OXYGEN SATURATION 98.5 % (92.0-98.5); BG OXYHEMOGLOBIN 98.1 % (94.0-97.0); BG PCO2 35.7 mmHg (35.0-45.0); BG PH 7.435 (7.350-7.450); BG PO2 118.1 mmHg (75.0-100.0); BG SAMPLE SITE RIGHT RADIAL; BG TOTAL HEMOGLOBIN 15.6 g/dL (12.0-18.0); BG VENT MODE VENT - AC
[2022-05-23] MEDS: HYDRALAZINE 20MG/ML VIAL IV PRN (16:35)
[2022-05-23] MEDS: DIAZEPAM 5 MG/ML 2ML CPJ IV PRN ×2 (16:36→22:46)
[2022-05-23] MEDS: ACETAMINOPHEN 325MG TABLET PO PRN (16:36)
[2022-05-23] MEDS: CEFTRIAXONE 1,000 MG in DEXTROSE 5% WATER 50 ML IV SCH (18:11)
[2022-05-24] VITALS (13 sets, daily range): BP systolic 120–153; BP diastolic 78–104
[2022-05-24] MEDS: IPRATROPIUM BROMIDE (0.02%) 0.5MG/2.5ML NEB HHN SCH ×6 (00:09→20:03)
[2022-05-24] MEDS: ACETYLCYSTEINE 100MG/ML 10% VIAL 4ML INH SCH ×3 (00:09→16:01)
[2022-05-24] MEDS: DEXT 5%/0.45% NACL 1000ML 1,000 ML IV SCH ×3 (05:33→21:52)
[2022-05-24] MEDS: THEOPHYLLINE ANHYDROUS 80 MG/15 ML 120ML PO SCH ×3 (05:34→21:45)
[2022-05-24] MEDS: METHYLPREDNISOLONE SOD SUCC 125 MG/2 ML VIAL IV SCH (05:35)
[2022-05-24] MEDS: SODIUM CHLORIDE 0.9% INJ 3ML FLUSH IVF SCH ×3 (05:35→21:50)
[2022-05-24] MEDS ORDERED: ENOXAPARIN 120MG/0.8ML SYR SUBCUT SCH (06:00)
[2022-05-24 06:17] LABS: HEMOGLOBIN. 15.2 g/dL (14.0-18.0); MEAN CORPUSCULAR HEMOGLOBIN 29.8 pg (28.0-32.0); MEAN CORPUSCULAR VOLUME 90.2 fL (80.0-94.0); MEAN PLATELET VOLUME 9.9 fl (7.4-10.4); PLATELET 312 x1000/uL (130-400); RED CELL DISTRIBUTION WIDTH 14.3 % (11.6-14.6)
[2022-05-24 09:09] LABS: BG BASE EXCESS -1.3 mmol/L (-2.0-2.0); BG CARBOXYHEMOGLOBIN 0.6 % (0.5-1.5); BG DEOXYHEMOGLOBIN 4.6 % (0.0-5.0); BG FRACTION INSPIRED OXYGEN 75; BG HCO3 ACT 22.8 mmol/L (22.0-26.0); BG METHEMOGLOBIN 0.7 % (0.0-1.5); BG OXYGEN SATURATION 95.3 % (92.0-98.5); BG OXYHEMOGLOBIN 94.1 % (94.0-97.0); BG PCO2 36.9 mmHg (35.0-45.0); BG PH 7.409 (7.350-7.450); BG PO2 77.7 mmHg (75.0-100.0); BG SAMPLE SITE LEFT RADIAL; BG TOTAL HEMOGLOBIN 15.9 g/dL (12.0-18.0); BG VENT MODE VENT - AC
[2022-05-24] MEDS: METOPROLOL TARTRATE 25MG TABLET NG SCH ×2 (09:13→21:48)
[2022-05-24] MEDS ORDERED: POTASSIUM CHLORIDE 20MEQ/PACKET NG SCH (10:15)
[2022-05-24 14:39] LABS: PLATELET ESTIMATE NORMAL
[2022-05-24] MEDS: ENOXAPARIN 120MG/0.8ML SYR SUBCUT SCH (17:28)
[2022-05-24] MEDS: CEFTRIAXONE 1,000 MG in DEXTROSE 5% WATER 50 ML IV SCH (17:32)
[2022-05-24] MEDS ORDERED: METHYLPREDNISOLONE SOD SUCC 125 MG/2 ML VIAL IV SCH (21:00)
[2022-05-24] MEDS: ACETAMINOPHEN 325MG TABLET PO PRN (21:47)
[2022-05-24] MEDS: DIAZEPAM 5 MG/ML 2ML CPJ IV PRN (21:53)
[2022-05-25] VITALS (12 sets, daily range): BP systolic 110–151; BP diastolic 71–93
[2022-05-25] MEDS: ACETYLCYSTEINE 100MG/ML 10% VIAL 4ML INH SCH ×4 (00:15→20:27)
[2022-05-25] MEDS: IPRATROPIUM BROMIDE (0.02%) 0.5MG/2.5ML NEB HHN SCH ×6 (00:16→20:27)
[2022-05-25] MEDS: SODIUM CHLORIDE 0.9% INJ 3ML FLUSH IVF SCH ×3 (05:49→21:02)
[2022-05-25] MEDS: ENOXAPARIN 120MG/0.8ML SYR SUBCUT SCH ×3 (06:00→18:25)
[2022-05-25] MEDS: THEOPHYLLINE ANHYDROUS 80 MG/15 ML 120ML PO SCH (06:54)
[2022-05-25] MEDS: METOPROLOL TARTRATE 25MG TABLET NG SCH ×2 (08:34→21:01)
[2022-05-25] MEDS ORDERED: METHYLPREDNISOLONE SOD SUCC 40 MG/ML VIAL IV SCH (09:00)
[2022-05-25] MEDS: SODIUM CHLORIDE 3% FOR INH 4ML UD NEB INH SCH ×3 (09:49→20:28)
[2022-05-25 11:06] LABS: HEMATOCRIT. 45.4 % (42.0-52.0); HEMOGLOBIN. 14.8 g/dL (14.0-18.0); MEAN PLATELET VOLUME 9.7 fl (7.4-10.4); PLATELET 327 x1000/uL (130-400); RED BLOOD CELL COUNT 4.94 mill/uL (4.7-6.1); RED CELL DISTRIBUTION WIDTH 14.4 % (11.6-14.6)
[2022-05-25 11:42] LABS: BG CARBOXYHEMOGLOBIN 0.2 % (0.5-1.5); BG DEOXYHEMOGLOBIN 3.7 % (0.0-5.0); BG FRACTION INSPIRED OXYGEN 75; BG HCO3 ACT 24.9 mmol/L (22.0-26.0); BG METHEMOGLOBIN 0.3 % (0.0-1.5); BG OXYGEN SATURATION 96.3 % (92.0-98.5); BG OXYHEMOGLOBIN 95.8 % (94.0-97.0); BG PCO2 41.3 mmHg (35.0-45.0); BG PH 7.398 (7.350-7.450); BG PO2 80.1 mmHg (75.0-100.0); BG SAMPLE SITE LEFT RADIAL; BG TOTAL HEMOGLOBIN 15.6 g/dL (12.0-18.0); BG VENT MODE VENT - AC
[2022-05-25] MEDS: DEXT 5%/0.45% NACL 1000ML 1,000 ML IV SCH ×2 (11:44→21:02)
[2022-05-25 13:18] LABS: PLATELET ESTIMATE NORMAL
[2022-05-25] MEDS ORDERED: POTASSIUM CHLORIDE 20MEQ/PACKET PO NR (15:00)
[2022-05-25] MEDS: CEFTRIAXONE 1,000 MG in DEXTROSE 5% WATER 50 ML IV SCH (18:21)
[2022-05-26] MEDS: IPRATROPIUM BROMIDE (0.02%) 0.5MG/2.5ML NEB HHN SCH ×6 (00:25→20:37)
[2022-05-26] MEDS: ACETAMINOPHEN 325MG TABLET PO PRN (02:40)
[2022-05-26] MEDS: ONDANSETRON HCL 4MG/2ML INJ IV PRN (02:40)
[2022-05-26] MEDS: SODIUM CHLORIDE 0.9% INJ 3ML FLUSH IVF SCH ×3 (05:38→21:46)
[2022-05-26] MEDS: ENOXAPARIN 120MG/0.8ML SYR SUBCUT SCH (05:39)
[2022-05-26] MEDS: DEXT 5%/0.45% NACL 1000ML 1,000 ML IV SCH (05:41)
[2022-05-26 06:04] LABS: CHLORIDE 114 mEq/L (98-107)
[2022-05-26] MEDS: SODIUM CHLORIDE 3% FOR INH 4ML UD NEB INH SCH ×3 (07:59→20:44)
[2022-05-26] MEDS: ACETYLCYSTEINE 100MG/ML 10% VIAL 4ML INH SCH ×2 (07:59→16:08)
[2022-05-26 08:00] VITALS: BP 169/95
[2022-05-26 08:53] LABS: PHOSPHORUS 0.2 mg/dL (2.5-4.9)
[2022-05-26] MEDS ORDERED: KCL 20MEQ/100ML PREMIX 100 ML IV SCH (09:00)
[2022-05-26] MEDS ORDERED: METHYLPREDNISOLONE SOD SUCC 40 MG/ML VIAL IV SCH (09:00)
[2022-05-26] MEDS: METOPROLOL TARTRATE 25MG TABLET NG SCH ×2 (09:09→20:37)
[2022-05-26 10:00] VITALS: BP 144/86
[2022-05-26] MEDS ORDERED: DIAZEPAM 2 MG TABLET PO PRN (10:00)
[2022-05-26 12:00] VITALS: BP 130/65
[2022-05-26] MEDS ORDERED: MAGNESIUM 4 G PREMIX 100 ML IV SCH (12:00)
[2022-05-26] MEDS ORDERED: POTASSIUM PHOS,M-BASIC-D-BASIC 30 MMOL in DEXT 5% WATER 500 ML IV SCH (12:00)
[2022-05-26 14:00] VITALS: BP 137/91
[2022-05-26] MEDS ORDERED: DIAZEPAM 5 MG TABLET NG PRN (16:30)
[2022-05-26 17:05] LABS: BG BASE EXCESS 0.6 mmol/L (-2.0-2.0); BG CARBOXYHEMOGLOBIN 0.5 % (0.5-1.5); BG DEOXYHEMOGLOBIN 6.6 % (0.0-5.0); BG FRACTION INSPIRED OXYGEN 40; BG HCO3 ACT 27.1 mmol/L (22.0-26.0); BG METHEMOGLOBIN 0.3 % (0.0-1.5); BG OXYGEN SATURATION 93.3 % (92.0-98.5); BG OXYHEMOGLOBIN 92.6 % (94.0-97.0); BG PCO2 50.3 mmHg (35.0-45.0); BG PO2 67.2 mmHg (75.0-100.0); BG SAMPLE SITE LEFT RADIAL; BG VENT MODE VENT - CPAP
[2022-05-26] MEDS: ENOXAPARIN 150MG/ML SYR SUBCUT SCH (18:00)
[2022-05-26 20:00] VITALS: BP 154/93
[2022-05-26] MEDS: CEFTRIAXONE 1,000 MG in DEXTROSE 5% WATER 50 ML IV SCH (20:41)
[2022-05-26 22:00] VITALS: BP 133/73
[2022-05-27] VITALS (11 sets, daily range): BP systolic 92–158; BP diastolic 23–98
[2022-05-27] MEDS: IPRATROPIUM BROMIDE (0.02%) 0.5MG/2.5ML NEB HHN SCH ×6 (00:15→20:51)
[2022-05-27] MEDS: ACETYLCYSTEINE 100MG/ML 10% VIAL 4ML INH SCH ×3 (00:15→15:21)
[2022-05-27] MEDS: DEXT 5%/0.45% NACL 1000ML 1,000 ML IV SCH ×2 (04:33→14:09)
[2022-05-27] MEDS: SODIUM CHLORIDE 0.9% INJ 3ML FLUSH IVF SCH ×3 (05:51→22:00)
[2022-05-27 06:54] LABS: CHLORIDE 110 mEq/L (98-107)
[2022-05-27 06:59] LABS: PHOSPHORUS 2.9 mg/dL (2.5-4.9)
[2022-05-27] MEDS: SODIUM CHLORIDE 3% FOR INH 4ML UD NEB INH SCH ×3 (07:49→20:51)
[2022-05-27] MEDS: METOPROLOL TARTRATE 25MG TABLET NG SCH ×2 (08:25→21:43)
[2022-05-27] MEDS: ENOXAPARIN 150MG/ML SYR SUBCUT SCH ×2 (08:26→21:42)
[2022-05-27] MEDS: PREDNISONE 20MG TABLET PO SCH (08:26)
[2022-05-27] MEDS ORDERED: POTASSIUM CHLORIDE 20MEQ/PACKET NG NR (09:30)
[2022-05-27 11:41] LABS: BG BASE EXCESS 0.5 mmol/L (-2.0-2.0); BG CARBOXYHEMOGLOBIN 0.7 % (0.5-1.5); BG DEOXYHEMOGLOBIN 7.6 % (0.0-5.0); BG FRACTION INSPIRED OXYGEN 40; BG HCO3 ACT 23.6 mmol/L (22.0-26.0); BG METHEMOGLOBIN 0.2 % (0.0-1.5); BG OXYGEN SATURATION 92.3 % (92.0-98.5); BG OXYHEMOGLOBIN 91.5 % (94.0-97.0); BG PCO2 33.4 mmHg (35.0-45.0); BG PH 7.467 (7.350-7.450); BG PO2 56.3 mmHg (75.0-100.0); BG SAMPLE SITE RIGHT RADIAL; BG TOTAL HEMOGLOBIN 14.3 g/dL (12.0-18.0); BG VENT MODE VENT - AC
[2022-05-27 13:07] LABS: ANTI-MYELOPEROXIDASE AB < 0.2 units (0.0-0.9); ANTI-PROTEINASE 3 ABS < 0.2 units (0.0-0.9)
[2022-05-27] MEDS: PIPERACILLIN/TAZOBACTAM 3.375 G in DEXTROSE 5% WATER 50 ML IV SCH ×2 (14:09→21:43)
[2022-05-27 14:30] LABS: GLOMERULAR BASEMENT MEMB AB QNS UNITS
[2022-05-27] MEDS: LORAZEPAM 1MG TABLET PO PRN (21:42)
[2022-05-28] VITALS (11 sets, daily range): BP systolic 122–160; BP diastolic 75–94
[2022-05-28] MEDS: IPRATROPIUM BROMIDE (0.02%) 0.5MG/2.5ML NEB HHN SCH ×4 (00:42→11:41)
[2022-05-28] MEDS: ACETYLCYSTEINE 100MG/ML 10% VIAL 4ML INH SCH ×3 (00:42→16:30)
[2022-05-28] MEDS: SODIUM CHLORIDE 3% FOR INH 4ML UD NEB INH SCH ×2 (00:43→11:42)
[2022-05-28] MEDS: ONDANSETRON HCL 4MG/2ML INJ IV PRN (04:14)
[2022-05-28] MEDS: LORAZEPAM 1MG TABLET PO PRN ×2 (05:43→14:13)
[2022-05-28] MEDS: PIPERACILLIN/TAZOBACTAM 3.375 G in DEXTROSE 5% WATER 50 ML IV SCH ×3 (05:43→21:14)
[2022-05-28] MEDS: DEXT 5%/0.45% NACL 1000ML 1,000 ML IV SCH ×2 (05:44→20:25)
[2022-05-28] MEDS: SODIUM CHLORIDE 0.9% INJ 3ML FLUSH IVF SCH ×2 (06:00→21:14)
[2022-05-28 06:31] LABS: BASOPHILS % 0.3 % (0.0-2.0); HEMATOCRIT. 41.2 % (42.0-52.0); HEMOGLOBIN. 13.5 g/dL (14.0-18.0); LYMPHOCYTES % 12.1 % (20.0-50.0); MEAN CORPUSCULAR HEMOGLOBIN 29.8 pg (28.0-32.0); MEAN PLATELET VOLUME 9.5 fl (7.4-10.4); MONOCYTES % 7.3 % (2.0-8.0); NEUTROPHILS % 78.3 % (40.0-76.0); PLATELET 289 x1000/uL (130-400); RED BLOOD CELL COUNT 4.53 mill/uL (4.7-6.1); RED CELL DISTRIBUTION WIDTH 14.9 % (11.6-14.6)
[2022-05-28 06:45] LABS: CHLORIDE 111 mEq/L (98-107)
[2022-05-28] MEDS: PREDNISONE 20MG TABLET PO SCH (08:26)
[2022-05-28] MEDS: DOCUSATE SODIUM SUGAR FREE 100MG/10ML UDC NG SCH (08:26)
[2022-05-28] MEDS: ENOXAPARIN 150MG/ML SYR SUBCUT SCH ×2 (08:27→20:25)
[2022-05-28] MEDS: METOPROLOL TARTRATE 25MG TABLET NG SCH ×2 (09:00→20:25)
[2022-05-28] MEDS ORDERED: POTASSIUM CHLORIDE 20MEQ/PACKET NG NR (11:30)
[2022-05-28 13:06] LABS: ATYPICAL P-ANCA <1:20 titer (Neg:<1:20); CYTOPLASMIC C-ANCA <1:20 titer (Neg:<1:20); PERINUCLEAR P-ANCA <1:20 titer (Neg:<1:20)
[2022-05-28] MEDS ORDERED: IPRATROPIUM/ALBUTEROL 0.5-3(2.5)MG/3ML NEB HHN PRN (14:30)
[2022-05-28] MEDS: IPRATROPIUM/ALBUTEROL 0.5-3(2.5)MG/3ML NEB HHN SCH ×2 (16:29→20:31)
[2022-05-29] VITALS (12 sets, daily range): BP systolic 133–162; BP diastolic 62–102
[2022-05-29] MEDS: IPRATROPIUM/ALBUTEROL 0.5-3(2.5)MG/3ML NEB HHN SCH ×4 (00:56→20:55)
[2022-05-29] MEDS: PIPERACILLIN/TAZOBACTAM 3.375 G in DEXTROSE 5% WATER 50 ML IV SCH ×3 (05:31→20:43)
[2022-05-29] MEDS: SODIUM CHLORIDE 0.9% INJ 3ML FLUSH IVF SCH ×3 (05:32→20:47)
[2022-05-29] MEDS: DEXT 5%/0.45% NACL 1000ML 1,000 ML IV SCH ×3 (05:32→23:55)
[2022-05-29] MEDS: SODIUM CHLORIDE 3% FOR INH 4ML UD NEB INH SCH ×4 (07:00→15:57)
[2022-05-29] MEDS: DOCUSATE SODIUM SUGAR FREE 100MG/10ML UDC NG SCH (08:34)
[2022-05-29] MEDS: PREDNISONE 20MG TABLET PO SCH (08:34)
[2022-05-29] MEDS: ENOXAPARIN 150MG/ML SYR SUBCUT SCH ×2 (08:35→20:43)
[2022-05-29] MEDS: METOPROLOL TARTRATE 25MG TABLET NG SCH ×2 (08:35→20:43)
[2022-05-29 17:26] LABS: BG BASE EXCESS 1.1 mmol/L (-2.0-2.0); BG CARBOXYHEMOGLOBIN 0.2 % (0.5-1.5); BG FRACTION INSPIRED OXYGEN 50; BG HCO3 ACT 26.6 mmol/L (22.0-26.0); BG METHEMOGLOBIN 0.2 % (0.0-1.5); BG OXYHEMOGLOBIN 97.6 % (94.0-97.0); BG PCO2 45.2 mmHg (35.0-45.0); BG PH 7.387 (7.350-7.450); BG PO2 106.5 mmHg (75.0-100.0); BG SAMPLE SITE RIGHT BRACHIAL; BG TOTAL HEMOGLOBIN 13.9 g/dL (12.0-18.0); BG VENT MODE VENT - AC
[2022-05-29] MEDS: ONDANSETRON HCL 4MG/2ML INJ IV PRN (23:55)
[2022-05-30] VITALS (12 sets, daily range): BP systolic 129–167; BP diastolic 72–105
[2022-05-30] MEDS: IPRATROPIUM/ALBUTEROL 0.5-3(2.5)MG/3ML NEB HHN SCH ×6 (00:18→20:11)
[2022-05-30] MEDS: SODIUM CHLORIDE 3% FOR INH 4ML UD NEB INH SCH ×5 (00:19→20:11)
[2022-05-30] MEDS: PIPERACILLIN/TAZOBACTAM 3.375 G in DEXTROSE 5% WATER 50 ML IV SCH ×3 (04:53→21:23)
[2022-05-30] MEDS: SODIUM CHLORIDE 0.9% INJ 3ML FLUSH IVF SCH ×3 (04:53→21:23)
[2022-05-30] MEDS: DOCUSATE SODIUM SUGAR FREE 100MG/10ML UDC NG SCH (09:00)
[2022-05-30] MEDS: ENOXAPARIN 150MG/ML SYR SUBCUT SCH ×2 (09:19→21:21)
[2022-05-30] MEDS: PREDNISONE 20MG TABLET PO SCH (09:19)
[2022-05-30] MEDS: METOPROLOL TARTRATE 25MG TABLET NG SCH ×2 (09:20→21:23)
[2022-05-30] MEDS: DEXT 5%/0.45% NACL 1000ML 1,000 ML IV SCH ×2 (09:31→21:20)
[2022-05-31] VITALS (10 sets, daily range): BP systolic 35–175; BP diastolic 22–115
[2022-05-31] MEDS: SODIUM CHLORIDE 3% FOR INH 4ML UD NEB INH SCH ×4 (01:10→20:28)
[2022-05-31] MEDS: IPRATROPIUM/ALBUTEROL 0.5-3(2.5)MG/3ML NEB HHN SCH ×6 (01:10→20:28)
[2022-05-31] MEDS: PIPERACILLIN/TAZOBACTAM 3.375 G in DEXTROSE 5% WATER 50 ML IV SCH ×3 (05:19→21:57)
[2022-05-31] MEDS: HYDRALAZINE 20MG/ML VIAL IV PRN ×2 (05:27→16:49)
[2022-05-31] MEDS: SODIUM CHLORIDE 0.9% INJ 3ML FLUSH IVF SCH ×3 (05:27→22:00)
[2022-05-31] MEDS: METOPROLOL TARTRATE 25MG TABLET NG SCH ×2 (09:41→21:57)
[2022-05-31] MEDS: PREDNISONE 20MG TABLET PO SCH (09:41)
[2022-05-31] MEDS: DOCUSATE SODIUM SUGAR FREE 100MG/10ML UDC NG SCH (09:41)
[2022-05-31] MEDS: ENOXAPARIN 150MG/ML SYR SUBCUT SCH ×2 (09:54→21:00)
[2022-05-31] MEDS: DEXT 5%/0.45% NACL 1000ML 1,000 ML IV SCH ×2 (10:34→16:49)
[2022-05-31] MEDS: ACETAMINOPHEN 325MG TABLET PO PRN (10:34)
[2022-05-31] MEDS ORDERED: POTASSIUM CHLORIDE 20MEQ TABLET SR PO NR (21:00)
[2022-05-31] MEDS: LORAZEPAM 1MG TABLET PO PRN (21:55)
[2022-06-01] VITALS (8 sets, daily range): BP systolic 106–165; BP diastolic 66–88
[2022-06-01] MEDS: IPRATROPIUM/ALBUTEROL 0.5-3(2.5)MG/3ML NEB HHN SCH ×6 (00:52→21:00)
[2022-06-01] MEDS: DEXT 5%/0.45% NACL 1000ML 1,000 ML IV SCH ×3 (04:54→21:33)
[2022-06-01] MEDS: SODIUM CHLORIDE 3% FOR INH 4ML UD NEB INH SCH (04:55)
[2022-06-01] MEDS: PIPERACILLIN/TAZOBACTAM 3.375 G in DEXTROSE 5% WATER 50 ML IV SCH (05:39)
[2022-06-01] MEDS: SODIUM CHLORIDE 0.9% INJ 3ML FLUSH IVF SCH ×3 (06:08→21:43)
[2022-06-01] MEDS: POTASSIUM CHLORIDE 20MEQ TABLET SR PO SCH (09:46)
[2022-06-01] MEDS: PREDNISONE 20MG TABLET PO SCH (09:46)
[2022-06-01] MEDS: DOCUSATE SODIUM SUGAR FREE 100MG/10ML UDC NG SCH (09:46)
[2022-06-01] MEDS: METOPROLOL TARTRATE 25MG TABLET NG SCH ×2 (09:47→21:33)
[2022-06-01] MEDS: ENOXAPARIN 150MG/ML SYR SUBCUT SCH ×2 (11:16→21:32)
[2022-06-02] MEDS: IPRATROPIUM/ALBUTEROL 0.5-3(2.5)MG/3ML NEB HHN SCH ×6 (00:56→20:28)
[2022-06-02] MEDS: SODIUM CHLORIDE 0.9% INJ 3ML FLUSH IVF SCH ×2 (05:23→15:04)
[2022-06-02] MEDS: SODIUM CHLORIDE 3% FOR INH 4ML UD NEB INH SCH ×3 (07:56→20:28)
[2022-06-02] MEDS: DOCUSATE SODIUM SUGAR FREE 100MG/10ML UDC NG SCH (09:25)
[2022-06-02] MEDS: PREDNISONE 20MG TABLET PO SCH (09:26)
[2022-06-02] MEDS: METOPROLOL TARTRATE 25MG TABLET NG SCH ×2 (09:26→20:42)
[2022-06-02] MEDS: POTASSIUM CHLORIDE 20MEQ TABLET SR PO SCH (09:26)
[2022-06-02] MEDS: ENOXAPARIN 150MG/ML SYR SUBCUT SCH ×2 (09:27→20:42)
[2022-06-02] MEDS: DEXT 5%/0.45% NACL 1000ML 1,000 ML IV SCH ×2 (09:32→20:45)
[2022-06-02 09:52] LABS: BG BASE EXCESS 1.4 mmol/L (-2.0-2.0); BG CARBOXYHEMOGLOBIN 0.3 % (0.5-1.5); BG DEOXYHEMOGLOBIN 4.8 % (0.0-5.0); BG FRACTION INSPIRED OXYGEN 40; BG HCO3 ACT 26.3 mmol/L (22.0-26.0); BG METHEMOGLOBIN 0.7 % (0.0-1.5); BG OXYGEN SATURATION 95.2 % (92.0-98.5); BG OXYHEMOGLOBIN 94.2 % (94.0-97.0); BG PH 7.405 (7.350-7.450); BG PO2 77.1 mmHg (75.0-100.0); BG SAMPLE SITE RIGHT BRACHIAL; BG TOTAL HEMOGLOBIN 13.1 g/dL (12.0-18.0); BG VENT MODE VENT - AC
[2022-06-02 10:00] VITALS: BP 185/98
[2022-06-02 18:00] LABS: BG BASE EXCESS 1.6 mmol/L (-2.0-2.0); BG CARBOXYHEMOGLOBIN 0.2 % (0.5-1.5); BG DEOXYHEMOGLOBIN 3.5 % (0.0-5.0); BG FRACTION INSPIRED OXYGEN 40; BG HCO3 ACT 26.7 mmol/L (22.0-26.0); BG METHEMOGLOBIN 0.2 % (0.0-1.5); BG OXYGEN SATURATION 96.5 % (92.0-98.5); BG OXYHEMOGLOBIN 96.1 % (94.0-97.0); BG PCO2 43.8 mmHg (35.0-45.0); BG PH 7.403 (7.350-7.450); BG PO2 85.4 mmHg (75.0-100.0); BG SAMPLE SITE RIGHT RADIAL; BG TOTAL HEMOGLOBIN 12.9 g/dL (12.0-18.0); BG VENT MODE VENT - SIMV
[2022-06-02 20:00] VITALS: BP 175/115
[2022-06-03] VITALS (8 sets, daily range): BP systolic 127–160; BP diastolic 80–95
[2022-06-03] MEDS: IPRATROPIUM/ALBUTEROL 0.5-3(2.5)MG/3ML NEB HHN SCH ×6 (00:19→20:19)
[2022-06-03] MEDS: SODIUM CHLORIDE 3% FOR INH 4ML UD NEB INH SCH ×4 (01:49→23:15)
[2022-06-03] MEDS: SODIUM CHLORIDE 0.9% INJ 3ML FLUSH IVF SCH ×3 (05:06→21:03)
[2022-06-03] MEDS: DEXT 5%/0.45% NACL 1000ML 1,000 ML IV SCH ×2 (05:06→16:13)
[2022-06-03] MEDS: PREDNISONE 20MG TABLET PO SCH (09:02)
[2022-06-03] MEDS: POTASSIUM CHLORIDE 20MEQ TABLET SR PO SCH (09:02)
[2022-06-03] MEDS: METOPROLOL TARTRATE 25MG TABLET NG SCH ×2 (09:03→20:50)
[2022-06-03] MEDS: DOCUSATE SODIUM SUGAR FREE 100MG/10ML UDC NG SCH (09:04)
[2022-06-03] MEDS: ENOXAPARIN 150MG/ML SYR SUBCUT SCH ×2 (12:56→20:48)
[2022-06-04] VITALS (9 sets, daily range): BP systolic 116–165; BP diastolic 79–112
[2022-06-04] MEDS: IPRATROPIUM/ALBUTEROL 0.5-3(2.5)MG/3ML NEB HHN SCH ×6 (00:16→20:24)
[2022-06-04] MEDS: DEXT 5%/0.45% NACL 1000ML 1,000 ML IV SCH ×3 (01:03→21:18)
[2022-06-04] MEDS: SODIUM CHLORIDE 0.9% INJ 3ML FLUSH IVF SCH ×3 (05:22→21:18)
[2022-06-04 06:49] LABS: BASOPHILS % 0.3 % (0.0-2.0); EOSINOPHILS % 2.2 % (0.0-5.0); HEMOGLOBIN. 11.9 g/dL (14.0-18.0); LYMPHOCYTES % 16.4 % (20.0-50.0); MEAN CORPUSCULAR HEMOGLOBIN 30.6 pg (28.0-32.0); MEAN CORPUSCULAR VOLUME 89.8 fL (80.0-94.0); MEAN PLATELET VOLUME 9.3 fl (7.4-10.4); MONOCYTES % 7.9 % (2.0-8.0); NEUTROPHILS % 73.2 % (40.0-76.0); PLATELET 177 x1000/uL (130-400); RED CELL DISTRIBUTION WIDTH 14.3 % (11.6-14.6)
[2022-06-04 06:59] LABS: CHLORIDE 109 mEq/L (98-107)
[2022-06-04] MEDS: PREDNISONE 10MG TABLET PO SCH (10:19)
[2022-06-04] MEDS: ENOXAPARIN 150MG/ML SYR SUBCUT SCH ×2 (10:19→21:18)
[2022-06-04] MEDS: DOCUSATE SODIUM SUGAR FREE 100MG/10ML UDC NG SCH (10:19)
[2022-06-04] MEDS: METOPROLOL TARTRATE 25MG TABLET NG SCH ×2 (10:21→21:18)
[2022-06-04] MEDS: POTASSIUM CHLORIDE 20MEQ/PACKET NG SCH ×2 (10:28→19:13)
[2022-06-04] MEDS: SODIUM CHLORIDE 3% FOR INH 4ML UD NEB INH SCH (17:15)
[2022-06-05] VITALS (12 sets, daily range): BP systolic 137–170; BP diastolic 63–108
[2022-06-05] MEDS: SODIUM CHLORIDE 3% FOR INH 4ML UD NEB INH SCH ×4 (00:14→19:48)
[2022-06-05] MEDS: IPRATROPIUM/ALBUTEROL 0.5-3(2.5)MG/3ML NEB HHN SCH ×6 (00:14→19:48)
[2022-06-05] MEDS: CLONIDINE 0.1MG TABLET PO PRN (02:35)
[2022-06-05] MEDS: SODIUM CHLORIDE 0.9% INJ 3ML FLUSH IVF SCH ×3 (05:50→22:11)
[2022-06-05] MEDS: DOCUSATE SODIUM SUGAR FREE 100MG/10ML UDC NG SCH (08:14)
[2022-06-05] MEDS: DEXT 5%/0.45% NACL 1000ML 1,000 ML IV SCH ×2 (08:14→17:30)
[2022-06-05] MEDS: ENOXAPARIN 150MG/ML SYR SUBCUT SCH ×2 (08:16→21:56)
[2022-06-05] MEDS: POTASSIUM CHLORIDE 20MEQ/PACKET NG SCH ×4 (08:16→21:56)
[2022-06-05] MEDS: PREDNISONE 10MG TABLET PO SCH (08:17)
[2022-06-05] MEDS: METOPROLOL TARTRATE 25MG TABLET NG SCH ×2 (08:50→21:57)
[2022-06-05 09:26] LABS: CHLORIDE 107 mEq/L (98-107)
[2022-06-05] MEDS ORDERED: LOPERAMIDE 2MG/15ML UDC PO PRN (17:00)
[2022-06-06] VITALS (12 sets, daily range): BP systolic 143–183; BP diastolic 84–106
[2022-06-06] MEDS: IPRATROPIUM/ALBUTEROL 0.5-3(2.5)MG/3ML NEB HHN SCH ×6 (00:19→20:46)
[2022-06-06] MEDS: SODIUM CHLORIDE 3% FOR INH 4ML UD NEB INH SCH (00:19)
[2022-06-06] MEDS: DEXT 5%/0.45% NACL 1000ML 1,000 ML IV SCH ×3 (02:47→22:41)
[2022-06-06] MEDS: SODIUM CHLORIDE 0.9% INJ 3ML FLUSH IVF SCH ×3 (06:11→21:51)
[2022-06-06 06:45] LABS: CHLORIDE 107 mEq/L (98-107)
[2022-06-06 06:46] LABS: INR 1.1; PROTHROMBIN TIME 11.4 sec (9.6-11.0)
[2022-06-06 06:47] LABS: BASOPHILS % 0.5 % (0.0-2.0); EOSINOPHILS % 2.4 % (0.0-5.0); HEMATOCRIT. 25.5 % (42.0-52.0); HEMOGLOBIN. 8.8 g/dL (14.0-18.0); LYMPHOCYTES % 12.8 % (20.0-50.0); MEAN CORPUSCULAR HEMOGLOBIN 30.5 pg (28.0-32.0); MEAN CORPUSCULAR VOLUME 88.7 fL (80.0-94.0); MEAN PLATELET VOLUME 9.4 fl (7.4-10.4); MONOCYTES % 6.3 % (2.0-8.0); PLATELET 84 x1000/uL (130-400); RED BLOOD CELL COUNT 2.87 mill/uL (4.7-6.1); RED CELL DISTRIBUTION WIDTH 14.5 % (11.6-14.6)
[2022-06-06 06:51] LABS: PHOSPHORUS 2.9 mg/dL (2.5-4.9)
[2022-06-06] MEDS: METOPROLOL TARTRATE 25MG TABLET NG SCH ×2 (08:45→21:51)
[2022-06-06] MEDS: POTASSIUM CHLORIDE 20MEQ/PACKET NG SCH ×4 (08:46→21:50)
[2022-06-06] MEDS: ENOXAPARIN 150MG/ML SYR SUBCUT SCH (08:46)
[2022-06-06] MEDS: PREDNISONE 10MG TABLET PO SCH (08:46)
[2022-06-06 11:51] LABS: TOTAL IRON BINDING CAPACITY 168 ug/dL (250-450)
[2022-06-06 12:25] LABS: FOLIC ACID (FOLATE) SERUM 6.6 ng/mL (>5.38)
[2022-06-06] MEDS: PANTOPRAZOLE SODIUM 40 MG/VIAL IV SCH ×2 (13:20→21:50)
[2022-06-06 17:42] LABS: CHLORIDE 108 mEq/L (98-107)
[2022-06-06] MEDS: CLONIDINE 0.1MG TABLET PO PRN (18:45)
[2022-06-06 22:05] LABS: BASOPHILS % 0.6 % (0.0-2.0); EOSINOPHILS % 1.9 % (0.0-5.0); HEMATOCRIT. 22.6 % (42.0-52.0); HEMOGLOBIN. 7.4 g/dL (14.0-18.0); LYMPHOCYTES % 10.6 % (20.0-50.0); MEAN CORPUSCULAR HEMOGLOBIN 29.6 pg (28.0-32.0); MEAN CORPUSCULAR VOLUME 90.4 fL (80.0-94.0); MEAN PLATELET VOLUME 9.9 fl (7.4-10.4); MONOCYTES % 5.1 % (2.0-8.0); NEUTROPHILS % 81.8 % (40.0-76.0); PLATELET 74 x1000/uL (130-400); RED CELL DISTRIBUTION WIDTH 14.7 % (11.6-14.6)
[2022-06-07] VITALS (16 sets, daily range): BP systolic 116–164; BP diastolic 44–119
[2022-06-07] MEDS: IPRATROPIUM/ALBUTEROL 0.5-3(2.5)MG/3ML NEB HHN SCH ×7 (00:44→23:05)
[2022-06-07 03:18] LABS: BASOPHILS % 0.2 % (0.0-2.0); EOSINOPHILS % 1.9 % (0.0-5.0); HEMOGLOBIN. 7.3 g/dL (14.0-18.0); LYMPHOCYTES % 13.6 % (20.0-50.0); MEAN CORPUSCULAR HEMOGLOBIN 29.8 pg (28.0-32.0); MEAN CORPUSCULAR VOLUME 90.5 fL (80.0-94.0); MEAN PLATELET VOLUME 9.7 fl (7.4-10.4); MONOCYTES % 5.6 % (2.0-8.0); NEUTROPHILS % 78.7 % (40.0-76.0); PLATELET 70 x1000/uL (130-400); RED BLOOD CELL COUNT 2.44 mill/uL (4.7-6.1); RED CELL DISTRIBUTION WIDTH 14.4 % (11.6-14.6)
[2022-06-07 03:29] LABS: INR 1.1; PROTHROMBIN TIME 11.3 sec (9.6-11.0)
[2022-06-07 03:44] LABS: CHLORIDE 108 mEq/L (98-107)
[2022-06-07] MEDS: SODIUM CHLORIDE 0.9% INJ 3ML FLUSH IVF SCH ×3 (06:09→22:00)
[2022-06-07] MEDS: SODIUM CHLORIDE 3% FOR INH 4ML UD NEB INH SCH ×3 (08:00→20:39)
[2022-06-07] MEDS: POTASSIUM CHLORIDE 20MEQ/PACKET NG SCH ×4 (09:00→20:45)
[2022-06-07] MEDS: METOPROLOL TARTRATE 25MG TABLET NG SCH ×2 (09:00→20:45)
[2022-06-07] MEDS: PANTOPRAZOLE SODIUM 40 MG/VIAL IV SCH ×2 (09:35→20:44)
[2022-06-07] MEDS: DEXT 5%/0.45% NACL 1000ML 1,000 ML IV SCH ×2 (09:35→19:01)
[2022-06-07 11:46] LABS: HEMATOCRIT 26.4 % (42.0-52.0); HEMOGLOBIN 8.7 g/dL (14.0-18.0)
[2022-06-07] MEDS: HYDRALAZINE 20MG/ML VIAL IV PRN (19:01)
[2022-06-07] MEDS: ENOXAPARIN 150MG/ML SYR SUBCUT SCH (20:47)
[2022-06-08] VITALS (8 sets, daily range): BP systolic 129–176; BP diastolic 59–111
[2022-06-08] MEDS: IPRATROPIUM/ALBUTEROL 0.5-3(2.5)MG/3ML NEB HHN SCH ×5 (04:03→19:55)
[2022-06-08] MEDS: DEXT 5%/0.45% NACL 1000ML 1,000 ML IV SCH ×2 (05:30→15:30)
[2022-06-08] MEDS: SODIUM CHLORIDE 0.9% INJ 3ML FLUSH IVF SCH ×2 (05:30→20:10)
[2022-06-08 07:12] LABS: BASOPHILS % 0.5 % (0.0-2.0); EOSINOPHILS % 2.4 % (0.0-5.0); HEMATOCRIT. 23.5 % (42.0-52.0); HEMOGLOBIN. 7.8 g/dL (14.0-18.0); LYMPHOCYTES % 10.3 % (20.0-50.0); MEAN CORPUSCULAR VOLUME 90.2 fL (80.0-94.0); MEAN PLATELET VOLUME 9.7 fl (7.4-10.4); MONOCYTES % 4.7 % (2.0-8.0); NEUTROPHILS % 82.1 % (40.0-76.0); PLATELET 54 x1000/uL (130-400); RED BLOOD CELL COUNT 2.61 mill/uL (4.7-6.1); RED CELL DISTRIBUTION WIDTH 14.5 % (11.6-14.6)
[2022-06-08 07:23] LABS: CHLORIDE 107 mEq/L (98-107)
[2022-06-08] MEDS: SODIUM CHLORIDE 3% FOR INH 4ML UD NEB INH SCH ×2 (07:58→16:24)
[2022-06-08] MEDS: ENOXAPARIN 150MG/ML SYR SUBCUT SCH (08:16)
[2022-06-08] MEDS: PANTOPRAZOLE SODIUM 40 MG/VIAL IV SCH ×2 (09:11→20:10)
[2022-06-08] MEDS: POTASSIUM CHLORIDE 20MEQ/PACKET NG SCH ×4 (09:11→20:10)
[2022-06-08] MEDS: METOPROLOL TARTRATE 25MG TABLET NG SCH ×2 (09:17→20:25)
[2022-06-08] MEDS: ACETAMINOPHEN 325MG TABLET PO PRN ×2 (09:18→13:09)
[2022-06-09] VITALS (11 sets, daily range): BP systolic 123–166; BP diastolic 54–121
[2022-06-09] MEDS: SODIUM CHLORIDE 3% FOR INH 4ML UD NEB INH SCH ×3 (00:27→14:17)
[2022-06-09] MEDS: IPRATROPIUM/ALBUTEROL 0.5-3(2.5)MG/3ML NEB HHN SCH ×6 (00:28→20:04)
[2022-06-09] MEDS: DEXT 5%/0.45% NACL 1000ML 1,000 ML IV SCH ×3 (00:33→21:57)
[2022-06-09] MEDS: SODIUM CHLORIDE 0.9% INJ 3ML FLUSH IVF SCH ×3 (06:17→21:57)
[2022-06-09 06:40] LABS: BASOPHILS % 0.5 % (0.0-2.0); EOSINOPHILS % 2.9 % (0.0-5.0); HEMATOCRIT. 24.2 % (42.0-52.0); HEMOGLOBIN. 8.3 g/dL (14.0-18.0); LYMPHOCYTES % 14.6 % (20.0-50.0); MEAN PLATELET VOLUME 9.9 fl (7.4-10.4); MONOCYTES % 5.4 % (2.0-8.0); NEUTROPHILS % 76.6 % (40.0-76.0); PLATELET 59 x1000/uL (130-400); RED BLOOD CELL COUNT 2.66 mill/uL (4.7-6.1); RED CELL DISTRIBUTION WIDTH 14.7 % (11.6-14.6)
[2022-06-09 06:50] LABS: CHLORIDE 109 mEq/L (98-107)
[2022-06-09] MEDS: POTASSIUM CHLORIDE 20MEQ/PACKET NG SCH ×4 (08:34→21:57)
[2022-06-09] MEDS: METOPROLOL TARTRATE 25MG TABLET NG SCH ×2 (08:34→21:56)
[2022-06-09] MEDS: PANTOPRAZOLE SODIUM 40 MG/VIAL IV SCH ×2 (08:37→21:56)
[2022-06-09] MEDS: CLONIDINE 0.1MG TABLET PO PRN ×2 (10:25→17:42)
[2022-06-10] VITALS (13 sets, daily range): BP systolic 125–165; BP diastolic 68–104
[2022-06-10] MEDS: IPRATROPIUM/ALBUTEROL 0.5-3(2.5)MG/3ML NEB HHN SCH ×6 (00:29→20:30)
[2022-06-10 04:48] LABS: PROTHROMBIN TIME 11.1 sec (9.6-11.0)
[2022-06-10 04:56] LABS: CHLORIDE 106 mEq/L (98-107)
[2022-06-10] MEDS: SODIUM CHLORIDE 0.9% INJ 3ML FLUSH IVF SCH ×3 (05:39→22:00)
[2022-06-10 05:47] LABS: BASOPHILS % 0.4 % (0.0-2.0); EOSINOPHILS % 3.2 % (0.0-5.0); HEMATOCRIT. 25.7 % (42.0-52.0); HEMOGLOBIN. 8.4 g/dL (14.0-18.0); LYMPHOCYTES % 8.6 % (20.0-50.0); MEAN CORPUSCULAR HEMOGLOBIN 30.2 pg (28.0-32.0); MEAN CORPUSCULAR VOLUME 92.3 fL (80.0-94.0); MONOCYTES % 5.4 % (2.0-8.0); NEUTROPHILS % 82.4 % (40.0-76.0); RED BLOOD CELL COUNT 2.78 mill/uL (4.7-6.1); RED CELL DISTRIBUTION WIDTH 15.1 % (11.6-14.6)
[2022-06-10 07:58] LABS: PLATELET 79 x1000/uL (130-400)
[2022-06-10] MEDS: POTASSIUM CHLORIDE 20MEQ/PACKET NG SCH ×2 (09:00→11:15)
[2022-06-10] MEDS: SODIUM CHLORIDE 3% FOR INH 4ML UD NEB INH SCH ×3 (09:28→20:37)
[2022-06-10] MEDS: PANTOPRAZOLE SODIUM 40 MG/VIAL IV SCH ×2 (09:52→20:27)
[2022-06-10] MEDS: DEXT 5%/0.45% NACL 1000ML 1,000 ML IV SCH ×2 (09:52→18:30)
[2022-06-10] MEDS: METOPROLOL TARTRATE 25MG TABLET NG SCH ×2 (10:02→20:27)
[2022-06-10 20:02] LABS: CREATINE KINASE 60 IU/L (39-308)
[2022-06-10] MEDS: ACETAMINOPHEN 325MG TABLET PO PRN (20:31)
[2022-06-10] MEDS ORDERED: IOHEXOL-350 100 ML BOTTLE ONE (21:19)
[2022-06-10] MEDS ORDERED: DIATR MEGLU/DIATRIZOATE SOLN 30ML ONE (21:19)
[2022-06-11] VITALS (9 sets, daily range): BP systolic 118–157; BP diastolic 66–92
[2022-06-11] MEDS: IPRATROPIUM/ALBUTEROL 0.5-3(2.5)MG/3ML NEB HHN SCH ×6 (01:21→21:09)
[2022-06-11] MEDS: SODIUM CHLORIDE 3% FOR INH 4ML UD NEB INH SCH ×2 (01:22→21:13)
[2022-06-11 03:19] LABS: BASOPHILS % 0.4 % (0.0-2.0); EOSINOPHILS % 3.2 % (0.0-5.0); HEMATOCRIT. 24.9 % (42.0-52.0); HEMOGLOBIN. 8.2 g/dL (14.0-18.0); LYMPHOCYTES % 14.3 % (20.0-50.0); MEAN CORPUSCULAR HEMOGLOBIN 30.6 pg (28.0-32.0); MEAN CORPUSCULAR VOLUME 92.9 fL (80.0-94.0); MEAN PLATELET VOLUME 9.6 fl (7.4-10.4); NEUTROPHILS % 76.1 % (40.0-76.0); PLATELET 77 x1000/uL (130-400); RED BLOOD CELL COUNT 2.68 mill/uL (4.7-6.1)
[2022-06-11] MEDS: DEXT 5%/0.45% NACL 1000ML 1,000 ML IV SCH ×3 (03:35→23:25)
[2022-06-11 03:36] LABS: INR 1.1; PROTHROMBIN TIME 11.9 sec (9.6-11.0)
[2022-06-11 03:39] LABS: CHLORIDE 104 mEq/L (98-107)
[2022-06-11] MEDS: SODIUM CHLORIDE 0.9% INJ 3ML FLUSH IVF SCH ×3 (05:04→21:53)
[2022-06-11] MEDS: METOPROLOL TARTRATE 25MG TABLET NG SCH ×2 (08:50→21:53)
[2022-06-11] MEDS: PANTOPRAZOLE SODIUM 40 MG/VIAL IV SCH ×2 (08:50→21:52)
[2022-06-11] MEDS: POTASSIUM CHLORIDE 20MEQ/PACKET NG SCH (08:51)
[2022-06-11] MEDS ORDERED: CEFAZOLIN 1000MG PREMIX 50 ML IV NR (09:00)
[2022-06-11] MEDS ORDERED: DIPHENHYDRAMINE 50MG/ML VIAL ONE (10:24)
[2022-06-11] MEDS ORDERED: MIDAZOLAM HCL 5 MG/5 ML VIAL ONE (10:25)
[2022-06-11] MEDS ORDERED: FENTANYL CITRATE/PF 50MCG/ML 2ML VIAL ONE (10:25)
[2022-06-11] MEDS ORDERED: DIAZEPAM 5 MG/ML 2ML CPJ ONE (10:29)
[2022-06-11] MEDS ORDERED: DIAZEPAM 5 MG/ML 2ML CPJ IV PRN (10:55)
[2022-06-11] MEDS ORDERED: FENTANYL CITRATE/PF 50MCG/ML 2ML VIAL IV PRN (11:00)
[2022-06-11] MEDS ORDERED: MIDAZOLAM HCL 2 MG/2 ML VIAL IV PRN (11:03)
[2022-06-11] MEDS: METOCLOPRAMIDE HCL 10MG/2ML VIAL IV SCH (12:00)
[2022-06-12] VITALS (14 sets, daily range): BP systolic 143–186; BP diastolic 58–128
[2022-06-12] MEDS: METOCLOPRAMIDE HCL 10MG/2ML VIAL IV SCH ×3 (00:34→12:00)
[2022-06-12] MEDS: IPRATROPIUM/ALBUTEROL 0.5-3(2.5)MG/3ML NEB HHN SCH ×7 (02:44→20:01)
[2022-06-12] MEDS: SODIUM CHLORIDE 0.9% INJ 3ML FLUSH IVF SCH ×2 (05:18→14:05)
[2022-06-12 06:14] LABS: CHLORIDE 105 mEq/L (98-107)
[2022-06-12] MEDS: SODIUM CHLORIDE 3% FOR INH 4ML UD NEB INH SCH ×3 (08:25→20:01)
[2022-06-12] MEDS: PANTOPRAZOLE SODIUM 40 MG/VIAL IV SCH (09:21)
[2022-06-12] MEDS: METOPROLOL TARTRATE 25MG TABLET NG SCH (09:25)
[2022-06-12] MEDS: POTASSIUM CHLORIDE 20MEQ/PACKET NG SCH (09:27)
[2022-06-12] MEDS ORDERED: POTASSIUM CHLORIDE 20MEQ/PACKET PO NR (09:45)
[2022-06-12] MEDS: DEXT 5%/0.45% NACL 1000ML 1,000 ML IV SCH (10:45)
[2022-06-12] MEDS ORDERED: SENNOSIDES 8.6MG TABLET GT PRN (13:30)
[2022-06-12] MEDS: CLONIDINE 0.1MG TABLET PO PRN ×2 (14:29→20:54)
[2022-06-12 18:08] LABS: BASOPHILS % 0.8 % (0.0-2.0); EOSINOPHILS % 4.6 % (0.0-5.0); HEMATOCRIT. 26.4 % (42.0-52.0); HEMOGLOBIN. 8.5 g/dL (14.0-18.0); LYMPHOCYTES % 15.9 % (20.0-50.0); MEAN CORPUSCULAR HEMOGLOBIN 30.3 pg (28.0-32.0); MEAN CORPUSCULAR VOLUME 93.7 fL (80.0-94.0); MEAN PLATELET VOLUME 9.6 fl (7.4-10.4); MONOCYTES % 5.6 % (2.0-8.0); NEUTROPHILS % 73.1 % (40.0-76.0); PLATELET 109 x1000/uL (130-400); RED BLOOD CELL COUNT 2.82 mill/uL (4.7-6.1); RED CELL DISTRIBUTION WIDTH 15.1 % (11.6-14.6)
[2022-06-13] MEDS ORDERED: DOCUSATE SODIUM SUGAR FREE 100MG/10ML UDC GT SCH (09:00)
== END 2022-06-12 23:00 | DRG 720 ==
LOC: ER 05:54 → EDBEDREQSVC 08:30 → EDBEDREQ 08:30 → EDBEDREQTM 08:30 → 5EST 09:10 → EDBEDREQ 09:14 → EDBEDREQTM 09:14 → ENRESERV 10:13 → 5EST 19:21
PROVIDERS: ADMIT Internal Medicine; ATTEND Internal Medicine
PROC: 5A1955Z Respiratory Ventilation, Greater than 96 Consecutive Hours (ICD-10-PCS; principal; 2022-05-17)
PROC: 30233N1 Transfusion of Nonautologous Red Blood Cells into Peripheral Vein, Percutaneous Approach (ICD-10-PCS; 2022-06-07)
PROC: 0DB78ZX Excision of Stomach, Pylorus, Via Natural or Artificial Opening Endoscopic, Diagnostic (ICD-10-PCS; 2022-06-11)
PROC: 0DH63UZ Insertion of Feeding Device into Stomach, Percutaneous Approach (ICD-10-PCS; 2022-06-11)
DX: A41.50 Gram-negative sepsis, unspecified (principal); J96.21 Acute and chronic respiratory failure with hypoxia; G93.49 Other encephalopathy; J15.6 Pneumonia due to other Gram-negative bacteria; D84.9 Immunodeficiency, unspecified; J44.0 Chronic obstructive pulmonary disease with (acute) lower respiratory infection; N17.9 Acute kidney failure, unspecified; E46 Unspecified protein-calorie malnutrition; K59.39 Other megacolon; J44.1 Chronic obstructive pulmonary disease with (acute) exacerbation; J96.22 Acute and chronic respiratory failure with hypercapnia; E66.2 Morbid (severe) obesity with alveolar hypoventilation; D64.9 Anemia, unspecified; E83.39 Other disorders of phosphorus metabolism; E83.42 Hypomagnesemia; E87.6 Hypokalemia; N18.9 Chronic kidney disease, unspecified; I12.9 Hypertensive chronic kidney disease with stage 1 through stage 4 chronic kidney disease, or unspecified chronic kidney disease; Z20.822 Contact with and (suspected) exposure to COVID-19; I48.0 Paroxysmal atrial fibrillation; K29.70 Gastritis, unspecified, without bleeding; R13.12 Dysphagia, oropharyngeal phase; R31.0 Gross hematuria; Z93.0 Tracheostomy status; Z79.899 Other long term (current) drug therapy; Z68.38 Body mass index [BMI] 38.0-38.9, adult
CPT/HCPCS: 36415; 36600; 71045; 71250; 74018; 74177; 76705; 76770; 78580; 80048; 80051; 80053; 80198; 81003; 82270; 82375; 82550; 82607; 82728; 82746; 82805; 83520; 83540; 83550; 83605; 83735; 83880; 84100; 84145; 84484; 85014; 85018; 85025; 85044; 85049; 86256; 86850; 86900; 86920; 87070; 87077; 87186; 87426; 88305; 88312; 88313; 93005; 93306; 93970; 94002; 94003; 94640; 94667; 97162; 99291; C9113; C9803; J0360; J0456; J0690; J0696; J1200; J1650; J2250; J2405; J2543; J2765; J2920; J2930; J3010; J3475; J3480; J3490; J7060; J7512; J7608; P9016; Q9963; Q9967; A4315

== ENCOUNTER 2022-06-12 23:41 | Emergency (ER) | payer MEDICAID ==
[~2022-06-12] VITALS: Ht 182.9 cm; Wt 133.0 kg
[2022-06-12 23:49] VITALS: BP 159/94
[2022-06-13] MEDS ORDERED: HYDRALAZINE HCL 50MG TABLET GT ONE (00:15)
== END 2022-06-13 00:35 ==
LOC: ER 23:41
DX: I10 Essential (primary) hypertension (principal); J44.9 Chronic obstructive pulmonary disease, unspecified; Z93.1 Gastrostomy status
CPT/HCPCS: 99283

== ENCOUNTER 2022-07-04 00:52 | Inpatient (IN) | payer MEDICARE, MEDICAID ==
[2022-07-04] VITALS (24 sets, daily range): BP systolic 80–130; BP diastolic 36–73
[~2022-07-04] VITALS: Ht 30.5 cm; Wt 119.7 kg
[2022-07-04] MEDS ORDERED: SODIUM CHLORIDE 0.9% 500 ML IV ONE (01:15)
[2022-07-04] MEDS ORDERED: SODIUM CHLORIDE 0.9% 1,000 ML IV ONE ×2 (01:15)
[2022-07-04] MEDS ORDERED: PIPERACILLIN/TAZ 3.375G PREMIX 50 ML IV ONE (01:15)
[2022-07-04] MEDS ORDERED: VANCOMYCIN 1G PREMIX 200 ML IV ONE (01:15)
[2022-07-04] MEDS ORDERED: MIDAZOLAM HCL 2 MG/2 ML VIAL ONE (02:27)
[2022-07-04] MEDS ORDERED: ACETAMINOPHEN 650MG SUPP ONE (03:24)
[2022-07-04] MEDS ORDERED: NOREPINEPHRINE 8MG/250ML PMX 250 ML IV ONE (04:44)
[2022-07-04 05:04] LABS: CLARITY URINE TURBID (CLEAR); COLOR URINE YELLOW (YELLOW); SPECIFIC GRAVITY URINE 1.018 (1.005-1.030)
[2022-07-04 05:05] LABS: KETONES URINE NEGATIVE (NEGATIVE); LEUKOCYTE ESTERASE URINE NEGATIVE (NEGATIVE); NITRITE URINE NEGATIVE (NEGATIVE); OCCULT BLOOD URINE 3+ (NEGATIVE); PROTEIN URINE 1+ (NEGATIVE)
[2022-07-04 07:02] LABS: HEMATOCRIT. 29.5 % (42.0-52.0); HEMOGLOBIN. 9.4 g/dL (14.0-18.0); MEAN CORPUSCULAR HEMOGLOBIN 28.8 pg (28.0-32.0); MEAN CORPUSCULAR VOLUME 90.3 fL (80.0-94.0); MEAN PLATELET VOLUME 9.9 fl (7.4-10.4); PLATELET 247 x1000/uL (130-400); RED BLOOD CELL COUNT 3.26 mill/uL (4.7-6.1); RED CELL DISTRIBUTION WIDTH 15.8 % (11.6-14.6)
[2022-07-04 07:05] LABS: PLATELET ESTIMATE NORMAL
[2022-07-04 11:29] LABS: BG BASE EXCESS -8.5 mmol/L (-2.0-2.0); BG CARBOXYHEMOGLOBIN 0.3 % (0.5-1.5); BG DEOXYHEMOGLOBIN 2.2 % (0.0-5.0); BG HCO3 ACT 18.5 mmol/L (22.0-26.0); BG OXYGEN SATURATION 97.8 % (92.0-98.5); BG OXYHEMOGLOBIN 96.5 % (94.0-97.0); BG PCO2 45.7 mmHg (35.0-45.0); BG PH 7.225 (7.350-7.450); BG PO2 139.2 mmHg (75.0-100.0); BG SAMPLE SITE RIGHT RADIAL; BG TOTAL HEMOGLOBIN 7.2 g/dL (12.0-18.0); BG VENT MODE VENT - AC
[2022-07-04] MEDS ORDERED: MIDAZOLAM HCL 2 MG/2 ML VIAL IV ONE (11:30)
[2022-07-04] MEDS ORDERED: IPRATROPIUM/ALBUTEROL 0.5-3(2.5)MG/3ML NEB HHN PRN (11:45)
[2022-07-04] MEDS ORDERED: NOREPINEPHRINE 8 MG in DEXTROSE 5% WATER 250 ML IV PRN (11:45)
[2022-07-04] MEDS ORDERED: ACETAMINOPHEN 650MG SUPP PR ONE (11:45)
[2022-07-04] MEDS ORDERED: PIPERACILLIN/TAZ 3.375G PREMIX 50 ML IV NR (12:00)
[2022-07-04] MEDS ORDERED: VANCOMYCIN 1G PREMIX 200 ML IV NR ×2 (12:00→15:45)
[2022-07-04 12:12] LABS: INR 1.2
[2022-07-04] MEDS: IPRATROPIUM/ALBUTEROL 0.5-3(2.5)MG/3ML NEB HHN SCH (12:20)
[2022-07-04 12:23] LABS: BG BASE EXCESS -2.3 mmol/L (-2.0-2.0); BG CARBOXYHEMOGLOBIN 0.3 % (0.5-1.5); BG FRACTION INSPIRED OXYGEN 100; BG METHEMOGLOBIN 0.5 % (0.0-1.5); BG OXYHEMOGLOBIN 98.2 % (94.0-97.0); BG PCO2 47.9 mmHg (35.0-45.0); BG PH 7.317 (7.350-7.450); BG PO2 168.2 mmHg (75.0-100.0); BG SAMPLE SITE LEFT RADIAL; BG TOTAL HEMOGLOBIN 9.9 g/dL (12.0-18.0); BG VENT MODE VENT - AC
[2022-07-04] MEDS ORDERED: ONDANSETRON HCL 4MG/2ML INJ IV PRN (12:45)
[2022-07-04] MEDS ORDERED: DOCUSATE SODIUM 100MG CAPSULE PO PRN (12:45)
[2022-07-04] MEDS ORDERED: TRAMADOL 50MG TABLET PO PRN (12:45)
[2022-07-04] MEDS ORDERED: PIPERACILLIN/TAZOBACTAM 3.375 G in DEXTROSE 5% WATER 50 ML IV SCH (12:45)
[2022-07-04] MEDS ORDERED: ACETAMINOPHEN 650MG/20.3ML UDC GT PRN (12:45)
[2022-07-04] MEDS ORDERED: MAGNESIUM/ALUMINUM HYDROXIDE/SIMETHICONE 30ML UDC PO PRN (12:45)
[2022-07-04] MEDS ORDERED: GUAIFENESIN 200MG/10ML SUGAR FREE UDC PO PRN (12:45)
[2022-07-04] MEDS ORDERED: NALOXONE HCL 0.4MG/ML VIAL IV PRN (13:00)
[2022-07-04] MEDS: PANTOPRAZOLE SODIUM 40 MG/VIAL IV SCH (13:46)
[2022-07-04] MEDS: SODIUM CHLORIDE 0.9% 1,000 ML IV SCH (13:46)
[2022-07-04] MEDS ORDERED: METO25TA6 PO (14:29)
[2022-07-04] MEDS ORDERED: POTA20LI50 PO (14:31)
[2022-07-04] MEDS ORDERED: APIX2.5T PO (14:31)
[2022-07-04] MEDS ORDERED: PANT40SU PO (14:33)
[2022-07-04] MEDS ORDERED: HYDR-4133 PO (14:34)
[2022-07-04] MEDS ORDERED: ONDA4TAB50 PO (14:36)
[2022-07-04] MEDS ORDERED: ALBU6.7H15 INH (14:37)
[2022-07-04] MEDS ORDERED: FURO40TA5 PO (14:38)
[2022-07-04] MEDS ORDERED: CLON0.1T PO (14:38)
[2022-07-04] MEDS ORDERED: ATOR20TA PO (14:39)
[2022-07-04 15:08] LABS: CHLORIDE 103 mEq/L (98-107)
[2022-07-04] MEDS ORDERED: ENOXAPARIN 40MG/0.4ML SYR SUBCUT SCH (16:00)
[2022-07-04] MEDS ORDERED: AZITHROMYCIN 500MG/250ML 250 ML IV NR (16:00)
[2022-07-04] MEDS ORDERED: NOREPINEPHRINE 32 MG in DEXT 5% WATER 218 ML IV PRN (18:30)
[2022-07-04] MEDS: PIPERACILLIN/TAZOBACTAM 3.375 G in DEXTROSE 5% WATER 50 ML IV SCH (22:00)
[2022-07-05] VITALS (102 sets, daily range): BP systolic 79–142; BP diastolic 32–83
[2022-07-05] MEDS: IPRATROPIUM/ALBUTEROL 0.5-3(2.5)MG/3ML NEB HHN SCH ×6 (00:31→19:58)
[2022-07-05] MEDS: ACETYLCYSTEINE 100MG/ML 10% VIAL 4ML INH SCH ×3 (00:31→17:04)
[2022-07-05] MEDS: SODIUM CHLORIDE 0.9% 1,000 ML IV SCH ×2 (05:06→16:09)
[2022-07-05 05:45] LABS: BASOPHILS % 0.3 % (0.0-2.0); EOSINOPHILS % 0.5 % (0.0-5.0); HEMATOCRIT. 26.9 % (42.0-52.0); HEMOGLOBIN. 8.7 g/dL (14.0-18.0); LYMPHOCYTES % 10.6 % (20.0-50.0); MEAN CORPUSCULAR HEMOGLOBIN 29.5 pg (28.0-32.0); MEAN CORPUSCULAR VOLUME 91.6 fL (80.0-94.0); MEAN PLATELET VOLUME 10.3 fl (7.4-10.4); MONOCYTES % 6.7 % (2.0-8.0); NEUTROPHILS % 81.9 % (40.0-76.0); PLATELET 267 x1000/uL (130-400); RED BLOOD CELL COUNT 2.94 mill/uL (4.7-6.1); RED CELL DISTRIBUTION WIDTH 16.4 % (11.6-14.6)
[2022-07-05 06:13] LABS: CHLORIDE 110 mEq/L (98-107)
[2022-07-05 06:23] LABS: HDL CHOLESTEROL 25 mg/dL (40-59); LDL CHOLESTEROL 49 mg/dL (5-100)
[2022-07-05] MEDS: PIPERACILLIN/TAZOBACTAM 3.375 G in DEXTROSE 5% WATER 50 ML IV SCH ×3 (08:48→23:30)
[2022-07-05] MEDS: PANTOPRAZOLE SODIUM 40 MG/VIAL IV SCH (08:49)
[2022-07-05] MEDS: VANCOMYCIN 1.25GM PMX (XELLIA) 250 ML IV SCH (08:50)
[2022-07-05 08:56] LABS: BG BASE EXCESS -1.1 mmol/L (-2.0-2.0); BG CARBOXYHEMOGLOBIN 0.3 % (0.5-1.5); BG DEOXYHEMOGLOBIN 1.5 % (0.0-5.0); BG FRACTION INSPIRED OXYGEN 80; BG HCO3 ACT 26.1 mmol/L (22.0-26.0); BG METHEMOGLOBIN 0.5 % (0.0-1.5); BG OXYGEN SATURATION 98.5 % (92.0-98.5); BG OXYHEMOGLOBIN 97.7 % (94.0-97.0); BG PCO2 55.6 mmHg (35.0-45.0); BG PH 7.289 (7.350-7.450); BG PO2 148.4 mmHg (75.0-100.0); BG SAMPLE SITE RIGHT BRACHIAL; BG TOTAL HEMOGLOBIN 10.9 g/dL (12.0-18.0); BG VENT MODE VENT - AC
[2022-07-05] MEDS ORDERED: AZITHROMYCIN 500 MG in DEXT 5% WATER 250 ML IV SCH (09:00)
[2022-07-05] MEDS: MIDODRINE HCL 5MG TABLET PO SCH ×2 (12:07→21:30)
[2022-07-05] MEDS ORDERED: MIDODRINE HCL 5MG TABLET PO SCH (13:00)
[2022-07-05] MEDS ORDERED: DIATR MEGLU/DIATRIZOATE SOLN 30ML ONE (15:57)
[2022-07-05] MEDS: AZITHROMYCIN 500 MG in DEXT 5% WATER 250 ML IV SCH (16:09)
[2022-07-05] MEDS: ENOXAPARIN 30MG/0.3ML SYR SUBCUT SCH (17:13)
[2022-07-06] VITALS (42 sets, daily range): BP systolic 107–150; BP diastolic 57–91
[2022-07-06] MEDS: IPRATROPIUM/ALBUTEROL 0.5-3(2.5)MG/3ML NEB HHN SCH ×6 (04:00→20:30)
[2022-07-06] MEDS: SODIUM CHLORIDE 0.9% 1,000 ML IV SCH ×2 (04:55→17:34)
[2022-07-06] MEDS: ENOXAPARIN 30MG/0.3ML SYR SUBCUT SCH ×2 (05:00→17:33)
[2022-07-06] MEDS: PIPERACILLIN/TAZOBACTAM 3.375 G in DEXTROSE 5% WATER 50 ML IV SCH ×3 (05:01→21:36)
[2022-07-06] MEDS: MIDODRINE HCL 5MG TABLET PO SCH ×3 (05:02→21:41)
[2022-07-06 05:39] LABS: CHLORIDE 113 mEq/L (98-107)
[2022-07-06 06:07] LABS: HIV SCREEN 4G Non Reactive (Non Reactive)
[2022-07-06 07:35] LABS: BG BASE EXCESS -0.2 mmol/L (-2.0-2.0); BG CARBOXYHEMOGLOBIN 0.3 % (0.5-1.5); BG DEOXYHEMOGLOBIN 4.7 % (0.0-5.0); BG HCO3 ACT 24.7 mmol/L (22.0-26.0); BG METHEMOGLOBIN 0.3 % (0.0-1.5); BG OXYGEN SATURATION 95.3 % (92.0-98.5); BG OXYHEMOGLOBIN 94.7 % (94.0-97.0); BG PCO2 41.5 mmHg (35.0-45.0); BG PH 7.393 (7.350-7.450); BG PO2 77.6 mmHg (75.0-100.0); BG SAMPLE SITE RIGHT RADIAL; BG TOTAL HEMOGLOBIN 9.7 g/dL (12.0-18.0); BG VENT MODE VENT - AC
[2022-07-06] MEDS: PANTOPRAZOLE SODIUM 40 MG/VIAL IV SCH (08:28)
[2022-07-06] MEDS: VANCOMYCIN 1.25GM PMX (XELLIA) 250 ML IV SCH ×2 (08:28→21:36)
[2022-07-06] MEDS: ACETYLCYSTEINE 100MG/ML 10% VIAL 4ML INH SCH ×3 (08:55→16:28)
[2022-07-06] MEDS ORDERED: POTASSIUM CHLORIDE 20MEQ/PACKET PO NR (09:15)
[2022-07-06] MEDS ORDERED: POTASSIUM CHLORIDE 20MEQ TABLET SR PO NR (12:00)
[2022-07-06] MEDS: AZITHROMYCIN 500 MG in DEXT 5% WATER 250 ML IV SCH (15:59)
[2022-07-07] VITALS (42 sets, daily range): BP systolic 120–176; BP diastolic 60–109
[2022-07-07] MEDS: ACETYLCYSTEINE 100MG/ML 10% VIAL 4ML INH SCH ×3 (00:28→17:36)
[2022-07-07] MEDS: IPRATROPIUM/ALBUTEROL 0.5-3(2.5)MG/3ML NEB HHN SCH ×6 (00:28→20:58)
[2022-07-07] MEDS: PIPERACILLIN/TAZOBACTAM 3.375 G in DEXTROSE 5% WATER 50 ML IV SCH ×3 (05:44→22:46)
[2022-07-07] MEDS: MIDODRINE HCL 5MG TABLET PO SCH ×3 (05:46→21:16)
[2022-07-07] MEDS: ENOXAPARIN 30MG/0.3ML SYR SUBCUT SCH ×2 (05:48→17:08)
[2022-07-07] MEDS: PANTOPRAZOLE SODIUM 40 MG/VIAL IV SCH (08:55)
[2022-07-07] MEDS: SODIUM CHLORIDE 0.9% 1,000 ML IV SCH ×2 (08:55→21:16)
[2022-07-07] MEDS: VANCOMYCIN 1.25GM PMX (XELLIA) 250 ML IV SCH ×2 (08:55→21:14)
[2022-07-07] MEDS: HYDROMORPHONE HCL/PF 2MG/ML CPJ IV PRN ×2 (08:56→16:02)
[2022-07-07] MEDS: POTASSIUM CHLORIDE 20MEQ TABLET SR PO SCH (08:57)
[2022-07-07] MEDS: THIAMINE HCL 100MG TABLET PO SCH (08:57)
[2022-07-07 09:49] LABS: BASOPHILS % 0.5 % (0.0-2.0); EOSINOPHILS % 2.2 % (0.0-5.0); LYMPHOCYTES % 20.5 % (20.0-50.0); MEAN CORPUSCULAR HEMOGLOBIN 28.8 pg (28.0-32.0); MEAN CORPUSCULAR VOLUME 90.5 fL (80.0-94.0); MEAN PLATELET VOLUME 8.9 fl (7.4-10.4); MONOCYTES % 6.6 % (2.0-8.0); NEUTROPHILS % 70.2 % (40.0-76.0); PLATELET 275 x1000/uL (130-400); RED BLOOD CELL COUNT 2.76 mill/uL (4.7-6.1); RED CELL DISTRIBUTION WIDTH 16.3 % (11.6-14.6)
[2022-07-07 10:01] LABS: CHLORIDE 115 mEq/L (98-107)
[2022-07-07 10:06] LABS: PHOSPHORUS 2.3 mg/dL (2.5-4.9)
[2022-07-07] MEDS ORDERED: POTASSIUM CHLORIDE INJ 40 MEQ in DEXT 5% WATER 250 ML IV ONE (11:15)
[2022-07-07] MEDS: KCL 20MEQ/100ML X 2 FOR TOTAL KCL 40MEQ/200ML IV SCH ×2 (13:16→16:01)
[2022-07-07] MEDS: AZITHROMYCIN 500 MG in DEXT 5% WATER 250 ML IV SCH (16:01)
[2022-07-07] MEDS: HYDRALAZINE 20MG/ML VIAL IV PRN (17:37)
[2022-07-08] VITALS (9 sets, daily range): BP systolic 127–161; BP diastolic 79–96
[2022-07-08] MEDS: IPRATROPIUM/ALBUTEROL 0.5-3(2.5)MG/3ML NEB HHN SCH ×6 (00:13→20:36)
[2022-07-08] MEDS: ACETYLCYSTEINE 100MG/ML 10% VIAL 4ML INH SCH ×2 (00:13→09:26)
[2022-07-08] MEDS: PIPERACILLIN/TAZOBACTAM 3.375 G in DEXTROSE 5% WATER 50 ML IV SCH ×3 (05:25→23:27)
[2022-07-08] MEDS: ENOXAPARIN 30MG/0.3ML SYR SUBCUT SCH (05:25)
[2022-07-08] MEDS: MIDODRINE HCL 5MG TABLET PO SCH ×3 (05:25→22:00)
[2022-07-08 07:12] LABS: CHLORIDE 117 mEq/L (98-107)
[2022-07-08 08:19] LABS: BASOPHILS % 0.5 % (0.0-2.0); EOSINOPHILS % 4.5 % (0.0-5.0); HEMATOCRIT. 22.5 % (42.0-52.0); HEMOGLOBIN. 7.3 g/dL (14.0-18.0); LYMPHOCYTES % 15.4 % (20.0-50.0); MEAN CORPUSCULAR HEMOGLOBIN 29.3 pg (28.0-32.0); MEAN CORPUSCULAR VOLUME 89.8 fL (80.0-94.0); MONOCYTES % 7.9 % (2.0-8.0); NEUTROPHILS % 71.7 % (40.0-76.0); PLATELET 313 x1000/uL (130-400); RED CELL DISTRIBUTION WIDTH 16.5 % (11.6-14.6)
[2022-07-08] MEDS: PANTOPRAZOLE SODIUM 40 MG/VIAL IV SCH (10:43)
[2022-07-08] MEDS: POTASSIUM CHLORIDE 20MEQ TABLET SR PO SCH (10:43)
[2022-07-08] MEDS: THIAMINE HCL 100MG TABLET PO SCH (10:43)
[2022-07-08] MEDS: SODIUM CHLORIDE 0.9% 1,000 ML IV SCH ×2 (10:44→23:46)
[2022-07-08] MEDS ORDERED: POTASSIUM CHLORIDE 20MEQ TABLET SR PO NR (11:00)
[2022-07-08] MEDS: AZITHROMYCIN 500 MG in DEXT 5% WATER 250 ML IV SCH (16:37)
[2022-07-08] MEDS: HYDRALAZINE 20MG/ML VIAL IV PRN ×2 (23:29→23:47)
[2022-07-09] VITALS (8 sets, daily range): BP systolic 124–163; BP diastolic 69–113
[2022-07-09] MEDS: VANCOMYCIN 1G PREMIX 200 ML IV SCH ×2 (00:21→18:03)
[2022-07-09] MEDS: ACETYLCYSTEINE 100MG/ML 10% VIAL 4ML INH SCH ×2 (00:35→09:15)
[2022-07-09] MEDS: IPRATROPIUM/ALBUTEROL 0.5-3(2.5)MG/3ML NEB HHN SCH ×6 (00:35→20:27)
[2022-07-09 06:06] LABS: CHLORIDE 117 mEq/L (98-107)
[2022-07-09 06:36] LABS: BASOPHILS % 0.6 % (0.0-2.0); EOSINOPHILS % 6.8 % (0.0-5.0); HEMATOCRIT. 24.5 % (42.0-52.0); HEMOGLOBIN. 8.1 g/dL (14.0-18.0); LYMPHOCYTES % 23.5 % (20.0-50.0); MEAN CORPUSCULAR HEMOGLOBIN 29.8 pg (28.0-32.0); MEAN PLATELET VOLUME 8.8 fl (7.4-10.4); MONOCYTES % 7.5 % (2.0-8.0); NEUTROPHILS % 61.6 % (40.0-76.0); PLATELET 354 x1000/uL (130-400); RED BLOOD CELL COUNT 2.72 mill/uL (4.7-6.1); RED CELL DISTRIBUTION WIDTH 16.5 % (11.6-14.6)
[2022-07-09] MEDS: THIAMINE HCL 100MG TABLET PO SCH (10:02)
[2022-07-09] MEDS: POTASSIUM CHLORIDE 20MEQ TABLET SR PO SCH (10:02)
[2022-07-09] MEDS: PANTOPRAZOLE SODIUM 40 MG/VIAL IV SCH (10:02)
[2022-07-09] MEDS ORDERED: POTASSIUM CHLORIDE 20MEQ TABLET SR PO NR (11:00)
[2022-07-09] MEDS: PIPERACILLIN/TAZOBACTAM 3.375 G in DEXTROSE 5% WATER 50 ML IV SCH ×2 (14:35→21:47)
[2022-07-09] MEDS: MIDODRINE HCL 5MG TABLET PO SCH ×2 (14:36→21:47)
[2022-07-10] VITALS (10 sets, daily range): BP systolic 132–172; BP diastolic 71–98
[2022-07-10] MEDS: IPRATROPIUM/ALBUTEROL 0.5-3(2.5)MG/3ML NEB HHN SCH ×6 (00:31→20:16)
[2022-07-10] MEDS: SODIUM CHLORIDE 0.9% 1,000 ML IV SCH ×2 (01:34→14:55)
[2022-07-10] MEDS: HYDRALAZINE 20MG/ML VIAL IV PRN ×2 (04:25→20:54)
[2022-07-10 04:53] LABS: BASOPHILS % 0.9 % (0.0-2.0); EOSINOPHILS % 6.7 % (0.0-5.0); HEMATOCRIT. 25.9 % (42.0-52.0); HEMOGLOBIN. 8.5 g/dL (14.0-18.0); LYMPHOCYTES % 28.4 % (20.0-50.0); MEAN CORPUSCULAR HEMOGLOBIN 29.8 pg (28.0-32.0); MEAN CORPUSCULAR VOLUME 90.2 fL (80.0-94.0); MEAN PLATELET VOLUME 8.4 fl (7.4-10.4); MONOCYTES % 6.4 % (2.0-8.0); NEUTROPHILS % 57.6 % (40.0-76.0); PLATELET 396 x1000/uL (130-400); RED BLOOD CELL COUNT 2.87 mill/uL (4.7-6.1); RED CELL DISTRIBUTION WIDTH 17.3 % (11.6-14.6)
[2022-07-10] MEDS: PIPERACILLIN/TAZOBACTAM 3.375 G in DEXTROSE 5% WATER 50 ML IV SCH ×2 (05:15→14:54)
[2022-07-10] MEDS: MIDODRINE HCL 5MG TABLET PO SCH ×2 (05:15→14:00)
[2022-07-10 05:28] LABS: CHLORIDE 118 mEq/L (98-107)
[2022-07-10] MEDS ORDERED: POTASSIUM CHLORIDE INJ 40 MEQ in DEXT 5% WATER 250 ML IV ONE (08:15)
[2022-07-10] MEDS: THIAMINE HCL 100MG TABLET PO SCH (09:04)
[2022-07-10] MEDS: PANTOPRAZOLE SODIUM 40 MG/VIAL IV SCH (09:04)
[2022-07-10] MEDS: KCL 20MEQ/100ML X 2 FOR TOTAL KCL 40MEQ/200ML IV SCH ×2 (09:04→10:45)
[2022-07-10] MEDS: POTASSIUM CHLORIDE 20MEQ TABLET SR PO SCH (09:04)
[2022-07-10] MEDS: VANCOMYCIN 1G PREMIX 200 ML IV SCH (12:22)
[2022-07-10] MEDS ORDERED: MIDODRINE HCL 5MG TABLET PO SCH (22:00)
== END 2022-07-10 22:05 | DRG 870 ==
LOC: ER 00:52 → MICUNO 01:43 → EDBEDREQSVC 14:17 → 5EST 07-07 15:45
PROVIDERS: ADMIT Hospitalist; ATTEND Hospitalist
PROC: 5A1955Z Respiratory Ventilation, Greater than 96 Consecutive Hours (ICD-10-PCS; principal; 2022-07-05)
PROC: 05HY33Z Insertion of Infusion Device into Upper Vein, Percutaneous Approach (ICD-10-PCS; 2022-07-08)
DX: A41.02 Sepsis due to Methicillin resistant Staphylococcus aureus (principal); J96.21 Acute and chronic respiratory failure with hypoxia; R65.21 Severe sepsis with septic shock; J15.6 Pneumonia due to other Gram-negative bacteria; E44.0 Moderate protein-calorie malnutrition; G93.40 Encephalopathy, unspecified; E87.4 Mixed disorder of acid-base balance; J44.0 Chronic obstructive pulmonary disease with (acute) lower respiratory infection; N17.9 Acute kidney failure, unspecified; Z99.11 Dependence on respirator [ventilator] status; L03.311 Cellulitis of abdominal wall; Z20.822 Contact with and (suspected) exposure to COVID-19; D63.8 Anemia in other chronic diseases classified elsewhere; I10 Essential (primary) hypertension; I48.91 Unspecified atrial fibrillation; J44.9 Chronic obstructive pulmonary disease, unspecified; I95.9 Hypotension, unspecified; D72.825 Bandemia; E87.6 Hypokalemia; Z79.899 Other long term (current) drug therapy; Z93.1 Gastrostomy status; Z93.0 Tracheostomy status; Z68.35 Body mass index [BMI] 35.0-35.9, adult; H91.90 Unspecified hearing loss, unspecified ear; R13.10 Dysphagia, unspecified
CPT/HCPCS: 36415; 36573; 36600; 71045; 74018; 80048; 80053; 80061; 80202; 81003; 82375; 82805; 82962; 83605; 83735; 83880; 84100; 84145; 85025; 86703; 86803; 87070; 87077; 87186; 87389; 87426; 93005; 93970; 94003; 94640; 99285; A6261; C1725; C9113; C9803; J0360; J0456; J1170; J1650; J2250; J2543; J3370; J3480; J3490; J7030; J7040; J7060; J7608; Q9963; A4315